=== PATIENT | male | born 1935 | race Caucasian/White ===

== ENCOUNTER 2017-01-31 19:08 | Observation (INO) | payer MEDICARE, OTHER ==
[~2017-01-31] VITALS: Ht 182.9 cm; Wt 87.7 kg
[~2017-01-31 19:08] MED LIST: ALLOPURINOL300 M1 PO; ARICEPT 10 MG T10 MG PO; B-121000 MCG PO; BAYER ASPIRIN R81 MG PO; CARBIDOPA AND L1 TA1 PO; CARBIDOPA/LE1 TABLE2 PO; CIPRO 500MG TA500 MG PO; COLCRYS0.6 M1 PO; DONEPEZIL 10MG10 MG PO; DOS; DOS PO; FIBER PO; FINASTERIDE5 M1 PO; GABAPENTIN300 M1 PO; GABAPENTIN300 M2 PO; GABAPENTIN300 MG PO; GLYCOLAX17 GM/PACK PO; HYDROCODONE-APA1 TA1 PO; K-DUR 1010 MEQ PO; LASIX20 MG PO; LEVAQUIN500 MG PO; LEVOCETIRIZINE D5 MG PO; LEVOTHYROXIN0.025 M1; LEVOTHYROXIN0.025 M1 PO; LEVOTHYROXINE0.1 MG PO; LISINOPRIL5 MG PO; MIRALAX17 GM/DOSE PO; MIRAPEX 0.120.125 MG PO; MIRAPEX0.125 M1 PO; NAMENDA10 MG PO; NAMZARIC1 ECC PO; NEURONTIN100 MG PO; PRAMIPEXOLE0.125 MG PO; RAZADYNE4 MG PO; STOOL SOFTENER240 MG PO; TAMSULOSIN HCL0.4 MG PO; VITAMIN B1250 MCG PO; VITAMIN C PLUS PO; VITAMIN C1000 M1 PO; VITAMIN D31000 I1 PO; VITAMIN D32000 I2 PO; VITAMIN E100 IU PO; [UNRECOGNIZED DRUG - OTHER]
[2017-01-31 19:10] VITALS: BP 134/76
[2017-01-31] MEDS ORDERED: ALLOPURINOL300 MG PO (19:26)
[2017-01-31] MEDS ORDERED: LEVOCETIRIZINE D5 MG PO (19:27)
[2017-01-31] MEDS ORDERED: LASIX 20MG. TAB20 MG PO (19:28)
[2017-01-31] MEDS ORDERED: MIRAPEX0.125 M1 PO (19:29)
[2017-01-31] MEDS ORDERED: CARBIDOPA/LE1 TABLE2 PO (19:31)
[2017-01-31] MEDS ORDERED: GABAPENTIN100 M1 PO (19:32)
[2017-01-31] MEDS ORDERED: GABAPENTIN300 MG PO (19:33)
[2017-01-31] MEDS ORDERED: VITAMIN D31000 IU PO (19:33)
[2017-01-31] MEDS ORDERED: PREDNISONE 5MG.5 MG PO (19:34)
[2017-01-31] MEDS ORDERED: FINASTERIDE5 MG PO (19:35)
[2017-01-31] MEDS ORDERED: NAMZARIC1 ECC PO (19:36)
[2017-01-31] MEDS ORDERED: TAMSULOSIN HYD0.4 MG PO (19:36)
[2017-01-31] MEDS ORDERED: ASPIRIN 81MG TA81 MG PO (19:37)
[2017-01-31] MEDS ORDERED: FLUDROCORTISON0.1 M1 PO (19:37)
[2017-01-31] MEDS ORDERED: LEVOTHYROXIN0.025 M1 PO (19:39)
[2017-01-31 19:57] LABS: HEMOGLOBIN 15.6 g/dL (14.1-18.0); LYMPH # 0.8 K/mm3 (0.7-4.5)
--- NOTE | 2017-01-31 19:58 | Emergency Room Report ---
History of Present Illness Time Seen by 1946 Presenting Problem in Triage Pt arrived:Ambulance Stretcher Presenting Problem:PATIENT SEEN BY HOME HEALTH, NURSE REQUESTED TO BE EVALUATED IN ER. FAMILY REPORTS INCREASED CONFUSED, AND LOW BP.SEEN DR. GUZMÁN LAST TUESDAY STARTED ON FLUDROCORT 0.1 MG Onset of symptoms date/time:01/24/17/ or onset unknown for:MEDICAL HX UNKNOWN Treatment Prior to Arrival: STARTED ON FLUDROCORT 0.1 MG AND PREDNISONE [employer] Provided by:PHYSICIAN Sepsis Risk Assessment: Temp: 98.4 B/P: 134/76 MAP: 95 Pulse: 61 Resp: 20 Recent fever? N Clinical Suspician of Infection? N Mental Status: 1 - Regular (Normal Baseline) Sepsis Risk:Low Sepsis Risk Have you (or family members/close friends) recently traveled outside the [place]? N If Yes, where/when: Have you had exposure to infectious disease within the past month? N TB? Other? Specify: Patient lives at home with his he walks with a walker at baseline has dementia. Over the past several days she's been having declining mental status on and off. Today he is been in bed all day and altered mental status all day since he woke up. He is not made any complaints of pain to his life except for some chronic low back pain which she states is unchanged. The patient doesn't contribute to history. Family states sometimes his blood pressure is dropping below that he's had a little bit of cough but otherwise no nausea vomiting or diarrhea or other complaints. She denies any pain he denies any complaints she is alert orientated 2 doesn't know the year but seems to lack any insight are really recollection of his recent symptoms. Or historian history of present illness is limited secondary to patient's mental status and dementia (Cuca GOODWIN, Abdi) Time Seen by 1911 Presenting Problem in Triage Pt arrived:Ambulance Stretcher Presenting Problem:PATIENT SEEN BY HOME HEALTH, NURSE REQUESTED TO BE EVALUATED IN ER. FAMILY REPORTS INCREASED CONFUSED, AND LOW BP.SEEN DR. GUZMÁN LAST TUESDAY STARTED ON FLUDROCORT 0.1 MG Onset of symptoms date/time:01/24/17/ or onset unknown for:MEDICAL HX UNKNOWN Treatment Prior to Arrival: STARTED ON FLUDROCORT 0.1 MG AND PREDNISONE [employer] Provided by:PHYSICIAN Sepsis Risk Assessment: Temp: 98.4 B/P: 126/75 MAP: 95 Pulse: 60 Resp: 20 Recent fever? N Clinical Suspician of Infection? N Mental Status: 1 - Regular (Normal Baseline) Sepsis Risk:Low Sepsis Risk Have you (or family members/close friends) recently traveled outside the [place]? N If Yes, where/when: Have you had exposure to infectious disease within the past month? N TB? Other? Specify: Source patient, RN notes reviewed, family, EMS, old records Exam Limitations no limitations Comment pt with dec functional status and was sent in for eval - pt poor historian -no fever /pt with no chest pain Cardiac Chest Pain Chest pain indicative of cardiac No Timing/Duration this evening ALLERGIES Coded Allergies: Penicillins (01/31/17) Home Medications Reported Medications Allopurinol 300 MG PO DAILY LEVOCETIRIZINE DIHYDROCHLORIDE (Levocetirizine Dihydrochloride) 5 MG PO DAILY Furosemide (Lasix 20MG) 20 MG PO QOD Pramipexole Di-HCl (Mirapex) 0.125 MG PO TID CARBIDOPA 25/LEVODOPA 100 (Carbidopa-Levodopa 25-100 Tab) 1 TABLET PO TID Gabapentin (Gabapentin 300MG) 300 MG PO BID CHOLECALCIFEROL (VITAMIN D3) (Vitamin D) 1,000 IUNITS PO DAILY Prednisone (Prednisone 5MG) 5 MG PO DAILY Finasteride 5 MG PO DAILY Memantine HCl/Donepezil HCl (Namzaric 21 MG-10 MG Capsule) 1 EACH PO NIGHT TAMSULOSIN HCL (Tamsulosin 0.4MG) 0.4 MG PO QHS ASPIRIN (Aspirin) 81 MG PO DAILY Fludrocortisone Acetate 0.1 MG PO AT HS Levothyroxine Sodium (Levothyroxine 0.025MG) 0.025 MG PO DAILY (To GOODWIN,Sergio Catherine) History Medical History General CAD? No Angina: No SD: Yes Hypertension? No Hyperlipidemia? Yes CHF? No DVT? No PE? No COPD? No Asthma? No Anemia? No GERD? Yes Gastric ulcers? Yes GI Bleed? No Hernia? No Thyroid Problems? Yes Hypothyroidism? No CVA? No Seizures? No Diabetes? No End Stage Renal Disease? No UTI? No Stones? No BPH? No GB Disease: No Nephritic Syndrome? No Asplenia? No Hepatitis? No Sickle Cell Disease? No Arthritis? No Migraines? No Cataracts? No Glaucoma? No MRSA? No HIV? No TB? No Anxiety? No Depression? No Cancer? No More? Yes Additional hx: [employer] Immunization Hx DT/Tetanus Unknown Surgical Hx Previous Surgery?N Social History Smoking Hx Smoker: Former Smoker Tobacco: Yes Type Cigarettes Alcohol Alcohol: No (Abdi Thurman MD) Review of Systems All Other Systems Reviewed and Negative (patient denies any pain or pro) Comment he denies any pain or problems foot seems to have limited insight review of systems Limited (Abdi Thurman MD) Physical Exam Vital Signs Vital Signs Date Time Temp Pulse Resp B/P Pulse O2 O2 Flow FiO2 Ox Delivery Rate 01/31 2025 60 20 126/75 96 01/31 1910 98.4 61 20 134/76 96 General Appearance: Nontoxic appears fatigued and dehydrated, some cough Head: Normocephalic, without obvious abnormality, atraumatic. Eyes: conjunctiva/corneas clear ENT: Mucous membranes dry Neck: No jugular venous distention. Cardiac: regular rate and rhythm Lungs: shallow rhonchi to auscultation bilaterally Abdomen: Nontender, Nondistended, positive bowel sounds, no rebound : No CVA tenderness Extremities: no edema Musculoskeletal: No chest wall tenderness denies arm or leg tenderness no chest wall tenderness no CT or L-spine tenderness Skin: No rashes or lesions to exposed skin. Neurologic: Alert. Alert and oriented x2, does not know year Cranial nerves intact Strength 5 out of 5 Sensation intact to light touch Psychiatric: flat affect (Abdi Thurman MD) General Appearance fatigued Respiratory Status No: respiratory distress. Cardiovascular normal exam Neurologic alert (fatigued) (Abdi Thurman MD) Medical Decision Making LABS/Meds/Orders Pt receiving controlled substance in ED? No Comment [id number] patient is up and CAT scan, ordered initial workup follow-up of testing labs and CTs chest x-ray per Dr. Ariza Results/Orders Laboratory Tests 01/31/171958: Urine Color YELLOW, Urine Appearance CLEAR, Urine pH 6.0, Ur Specific [place] 1.015, Urine Protein NEGATIVE, Urine Ketones NEGATIVE, Urine Blood TRACE-LYSED, Urine Nitrate NEGATIVE, Urine Bilirubin NEGATIVE, Urine Urobilinogen 0.2, Ur Leukocyte Esterase 1+ H, Urine RBC OCC, Urine WBC 20-50, Ur Squamous Epith Cells OCC, Urine Bacteria 4+, Hyaline Casts 10-20, Urine Glucose NEGATIVE 01/31/171929: TSH Pending, Thyroxine (T4) Pending 01/31/171929: Lactic Acid 1.8 01/31/171929: Troponin I 0.02, B-Natriuretic Peptide 27 01/31/171929: Sodium 140, Potassium 4.0, Chloride 99, Carbon Dioxide 34 H, BUN 35 H, Creatinine 1.8 H, Estimated Creat Clear 42 L, Estimated GFR (MDRD) 36, Glucose 177 H, Calcium 9.2, Total Bilirubin 0.4, AST 19, ALT 11 L, Alkaline Phosphatase 89, Total Protein 8.0, Albumin 4.0, Globulin 4.0 H, Albumin/ Globulin Ratio 1.0 L, Lipase 366, WBC 8.1, RBC 5.18, Hgb 15.6, Hct 47.9, MCV 92.5, RDW 14.4, Plt Count 171, MPV 7.7, Gran % 87.0 H, Gran # 7.1, Total Counted 100, Lymphocytes % 10.0, Monocytes % 2.2, Eosinophils % 0.4, Basophils % 0.4, Neutrophils 86 H, Lymphocytes (Manual) 10, Lymphocytes # 0.8, Monocytes ( Manual) 4, Monocytes # 0.2, Eosinophils # 0.0, Basophils # 0.0, Platelet Estimate NORMAL, PUBS MCHC 32.6, MCH 30.2 Current Medication Orders Sig/Lu Start time Last Medication Dose Route Stop Time Status Admin Ondansetron HCl 0 .STK-MED ONE 01/31 1943 DC .ROUTE Sodium Chloride 1,000 ML .STK-MED ONE 01/31 1943 DC IV Morphine Sulfate 4 MG ONCE ONE 01/31 1915 CAN IV 02/01 1916 Ondansetron HCl 4 MG ONCE ONE 01/31 1915 DC 01/31 IV 01/31 Sodium Chloride 1,000 ML .Q1H1M 01/31 1915 DC 01/31 IV 01/31 Sodium Chloride 10 ML PRN PRN 01/31 1915 AC IV 02/01 1913 Orders Procedure Date/time Status DIET-NOTHING BY MOUTH 02/01 B Active Decision to admit 02/01 2108 Active THYROID STIMULATING HORMONE 02/01 2056 Active THYROXINE (T4) 02/01 2056 Active URINARY CATHETER INSERT 02/01 2024 Active CULTURE, URINE 01/31 1959 Active DIFFERENTIAL-WBC 01/[address] HEAD W/O CONTRAST 01/31 1923 Active 12 LEAD EKG-ADONAY (INITIAL) 01/31 1922 Active ELECTROCARDIOGRAM REQUEST 01/[address] HEAD REQ 01/31 1922 Complete CHEST-AP VIEW ONLY 01/31 1922 Active CULTURE, BLOOD 01/31 1922 Active URINALYSIS/COMPLETE 01/31 1922 Complete TROPONIN I 01/31 1922 Complete LACTIC ACID 01/31 1922 Complete BRAIN NATRIURETIC PEPTIDE 01/31 1922 Complete LIPASE 01/31 1913 Complete CBC WITH AUTO DIFF 01/31 1913 Complete CHEM 12 PROFILE 01/31 1913 Complete CM/EKG CM/hr coordinator Rhythm Sinus Bradycardia EKG compared w/(date of old), RBBB, lahb (To GOODWIN,Sergio Catherine) Departure Departure Time of Disposition 1954 Disposition Still a Patient Condition STABLE ED Critical Care Critical Care No (Abdi Thurman MD) Departure Clinical Impression Primary Impression: Confusion Secondary Impressions: RBBB (right bundle branch block with left anterior fascicular block) Renal insufficiency UTI (urinary tract infection) Qualifiers: Urinary tract infection type: acute cystitis Hematuria presence: without hematuria Qualified Code: N30.00 - Acute cystitis without hematuria Weakness Referrals Imelda Guzmán MD (Family) discussed with dr guzmán (Sergio Ariza MD) at 195 at 2113
--- OUTSIDE RECORDS SUMMARY | 2017-01-31 20:11 | External Medical Summary Rpt | CCD ---
Author Author , HOWARD Organization HOWARD Address Unknown Phone [email or web address] Purpose Continuity of Care Document - 10-14-2016 through 2016 Results Labs Lab Lab Date Result Refere Interp Status Commen Order Detail nces retati t Range on Differential panel, method unspecified - (10-14-2016 13:40) LYMPH 9 % 10% - Low complet 017 50% ed 13:40 Platele NORMAL complet ts 017 ed [Presen 13:40 ce] in Blood by Light microsc opy Urinalysis dipstick W Reflex Microscopic panel in Urine (10-14-2016 13:35) Bacteri 3+ O complet a 017 ed [Presen 13:35 ce] in Urine sedimen t by Light microsc opy Erythro 20-50 0 complet cytes 017 ed [Presen 13:35 ce] in Urine sedimen t by Light microsc opy Epithel OCC OCC complet ial 017 ed cells.s 13:35 quamous [Presen ce] in Urine sedimen t by Microsc opy high power field Leukocy 50-100 O complet casie 017 wbc/hpf ed [#/volu 13:35 me] in Urine Urinalysis dipstick W Reflex Microscopic panel in Urine (10-14-2016 13:35) Appeara CLOUDY CLEAR complet nce of 017 ed Urine 13:35 Bilirub NEGATIV NEG complet in 017 E ed [Presen 13:35 ce] in Urine by Test strip Erythro 3+ NEG Abnorma complet cytes 017 l ed [Presen 13:35 ce] in Urine Color YELLOW YELLOW complet of 017 ed Urine 13:35 Ketones NEGATIV NEG complet 017 E ed [Presen 13:35 ce] in Urine by Automat ed test strip Mucus 3+ NEG Abnorma complet [Presen 017 l ed ce] in 13:35 Urine sedimen t by Light microsc opy Nitrite NEGATIV NEG complet 017 E ed [Presen 13:35 ce] in Urine by Test strip Urobili 0.2 NEG complet nogen 017 ed [Presen 13:35 ce] in Urine by Test strip
--- OUTSIDE RECORDS SUMMARY | 2017-01-31 20:11 | External Medical Summary Rpt | CCD ---
Author Author [employer] Organization [employer] Address Unknown Phone Unavailable Purpose Continuity of Care Document - through 2016
--- OUTSIDE RECORDS SUMMARY | 2017-01-31 20:11 | External Medical Summary Rpt | CCD ---
Author Author , HOWARD Organization HOWARD Address Unknown Phone [email or web address] Purpose Continuity of Care Document - 10-14-2016 [...]
--- OUTSIDE RECORDS SUMMARY | 2017-01-31 20:12 | External Medical Summary Rpt | CCD ---
Demographics Preferred Language Portuguese Marital Status Unknown Orthodoxy Affiliation Unknown Race Unknown Ethnic Group Unknown Author Author , HOWARD LAWRENCE Address Unknown Phone Immunization Unable to retrieve immunization data due to connection failure with Immunization Registry. Please try again later.
--- OUTSIDE RECORDS SUMMARY | 2017-01-31 20:12 | External Medical Summary Rpt | CCD ---
Demographics Preferred Language Portuguese Marital Status Unknown Episcopal Affiliation Unknown Race Unknown Ethnic Group Unknown Author Author , HOWARD LAWRENCE Address Unknown Phone Immunization Unable to retrieve immunization data due to connection failure with Immunization Registry. Please try again later.
[2017-01-31 20:13] LABS: URINE BILIRUBIN - DIPSTICK NEGATIVE (NEG); URINE BLOOD TRACE-LYSED (NEG)
--- OUTSIDE RECORDS SUMMARY | 2017-01-31 20:13 | External Medical Summary Rpt ---
Author Author [employer]ARD [employer], [employer]ARD [employer] Organization [employer] Address Unknown Phone Unavailable Results Basic metabolic panel in Blood Observa Value Referen Units Interpr Notes Date tion ce etation Range Urea 7 - 18 mg/dL High No Oct 15 nitrogen informati 2016 6:18 [Mass/vol on in AM ume] in source Serum or data Plasma Calcium 8.5 - mg/dL Normal No Oct 15 [Mass/vol 10.1 informati 2016 6:18 ume] in on in AM Serum or source Plasma data Chloride 98 - 107 mmoL/L Normal No Oct 15 [Moles/vo informati 2016 6:18 lume] in on in AM Serum or source Plasma data Carbon 21.0 - mmoL/L Normal No Oct 15 dioxide, 32.0 informati 2016 6:18 total on in AM [Moles/vo source lume] in data Serum or Plasma Creatinin 0.70 - mg/dL High No Oct 15 e 1.30 informati 2016 6:18 [Mass/vol on in AM ume] in source Serum or data Plasma Creatinin 50 - 200 ML/MIN Low No Oct 15 e renal informati 2017 6:18 clearance on in AM source predicted data by Cockcroft -Gault formula Estimated >60 ML/MIN No REFERENCE Oct 15 informati RANGE: 2017 6:18 glomerula on in >60 AM r source ML/MIN/1. filtratio data 73 SQUARE n rate METERSIf (GF this patient is -A merican, then multiply theresult by 1.210. Glucose 74 - 106 mg/dL Normal No Oct 15 [Mass/vol informati 2016 6:18 ume] in on in AM Serum or source Plasma data Potassium 3.5 - 5.1 mmoL/L Normal No Oct 15 informati 2016 6:18 [Moles/vo on in AM lume] in source Serum or data Plasma Sodium 136 - 145 mmoL/L Normal No Oct 15 [Moles/vo informati 2016 6:18 lume] in on in AM Serum or source Plasma data CBC W Auto Differential panel in Blood Observa Value Referen Units Interpr Notes Date tion ce etation Range Basophils 0 - 0.2 K/MM3 Normal No Oct 15 informati 2016 6:18 [#/volume on in AM ] in source Blood by data Automated count Basophils 0.1 - 2.0 % Normal No Oct 15 /100 informati 2017 6:18 leukocyte on in AM s in source Blood by data Automated count Eosinophi 0.0 - 0.4 K/mm3 Normal No Oct 15 ls informati 2016 6:18 [#/volume on in AM ] in source Blood by data Automated count Eosinophi 0.1 - % Normal No Oct 15 ls/100 12.0 informati 2016 6:18 leukocyte on in AM s in source Blood by data Automated count Granulocy 1.3 - 8.0 K/mm3 Normal No Oct 15 casie informati 2016 6:18 [#/volume on in AM ] in source Blood by data Automated count Granulocy 37.0 - % High No Oct 15 casie/100 80.0 informati 2016 6:18 leukocyte on in AM s in source Blood by data Automated count Hematocri 42.0 - % Low No Oct 15 t [Volume 52.0 informati 2016 6:18 on in AM Fraction] source of Blood data Hemoglobi 14.1 - g/dL Low No Oct 15 n 18.0 informati 2016 6:18 [Mass/vol on in AM ume] in source Blood data Lymphocyt 0.7 - 4.5 K/mm3 Normal No Oct 15 es informati 2016 6:18 [#/volume on in AM ] in source Unspecifi data ed specimen by Automated count Lymphocyt 10 - 50 % Normal No Oct 15 es informati 2016 6:18 [#/volume on in AM ] in source Unspecifi data ed specimen by Automated count Erythrocy 27 - 31.2 pg Normal No Oct 15 te mean informati 2016 6:18 corpuscul on in AM ar source hemoglobi data n [Entitic mass] Erythrocy 31.8 - g/dl Normal No Oct 15 te mean 35.4 informati 2016 6:18 corpuscul on in AM ar source hemoglobi data n concentra tion [Mass/vol ume] by Automated count Erythrocy 82.2 - fl Normal No Oct 15 te mean 97.8 informati 2016 6:18 corpuscul on in AM ar volume source [Entitic data volume] by Automated count Monocytes 0.1 - 1.0 K/mm3 Normal No Oct 15 inform2016 6:18 [#/volume on in AM ] in source Blood by data Automated count Monocytes 1.7 - 9.3 % Normal No Oct 15 inform2016 6:18 leukocyte on in AM s in source Blood by data Automated count Platelet 7.4 - fl Normal No Oct 15 mean 10.4 inform2016 6:18 volume on in AM [Entitic source volume] data in Blood by Automated count Platelets 142 - 424 K/mm3 Low No Oct 15 informati 2016 6:18 [#/volume on in AM ] in source Blood data Erythrocy 4.6 - 6.2 M/mm3 Low No Oct 15 casie informati 2016 6:18 [#/volume on in AM ] in source Amniotic data fluid Erythrocy 11.5 - % Normal No Oct 15 te 17.5 informati 2016 6:18 distribut on in AM ion width source [Entitic data volume] by Automated count Leukocyte 4.8 - K/MM3 No No Oct 15 s 10.8 informati informati 2016 6:18 [#/volume on in on in AM ] in source source Blood data data Cobalamin (Vitamin B12) [Mass/volume] in Serum Observa Value Referen Units Interpr Notes Date tion ce etation Range Cobalamin 211 - 946 pg/mL No Performed Oct 14 (Vitamin informati at: CB 2016 1:40 B12) on in - [facility] PM [Mass/vol source ume] in data [place] [address] [place] [id number] Housekeeping Manager: Klaus Elaine PhD, Phone: [phone] 1948:ANGELES MIN B12 previousl y reported as: 384 25-Hydroxyvitamin D [Mass/volume] in Serum or Plasma Observa Value Referen Units Interpr Notes Date tion ce etation Range 25-Hydrox 30.0 - ng/mL No Vitamin D Oct 14 yvitamin 100.0 informati 2017 1:40 D on in deficienc PM [Mass/vol source y has ume] in data been Serum or defined Plasma by the [place] ofMedicin e and an Endocrine Society practice guideline as alevel of serum 25-OH vitamin D less than 20 ng/mL (1,2).The Endocrine Society went on to further define vitamin Dinsuffic iency as a level between 21 and 29 ng/mL (2).1. IOM (Institut e of Medicine) . 2010. Dietary reference intakes for calcium and D. [place]: [employer].2. Shekhar MF, Morgan NC, Jonah Quarles BRANCH, et al.Evalua tion, treatment , and preventio n of vitamin Ddeficien cy: an Endocrine Society clinical practiceg uideline. JCEM. 2010; 96(7):191 1-30.Perf ormed at: [facility] [address] [id number] Housekeeping Manager: Klaus Elaine PhD, Phone: [phone] 1927:VIT D 25-OH TOT previousl y reported as: 47.5 Cobalamin (Vitamin B12) [Mass/volume] in Serum Observa Value Referen Units Interpr Notes Date tion ce etation Range Cobalamin No No No No Oct 14 (Vitamin informati informati informati informati 2016 1:40 B12) on in on in on in on in PM [Mass/vol source source source source ume] in data data data data Serum 25-Hydroxyvitamin D [Mass/volume] in Serum or Plasma Observa Value Referen Units Interpr Notes Date tion ce etation Range 25-Hydrox No No No No Oct 14 yvitamin informati informati informati informati 2016 1:40 D on in on in on in on in PM [Mass/vol source source source source ume] in data data data data Serum or Plasma Lactate [Moles/volume] in Blood Observa Value Referen Units Interpr Notes Date tion ce etation Range Lactate 0.4 - 2.0 mmol/L Normal No Oct 14 [Moles/vo informati 2016 1:40 lume] in on in PM Blood source data CBC W Auto Differential panel in Blood Observa Value Referen Units Interpr Notes Date tion ce etation Range Basophils 0 - 0.2 K/MM3 Normal No Oct 14 informati 2016 1:40 [#/volume on in PM ] in source Blood by data Automated count Basophils 0.1 - 2.0 % Normal No Oct 14 informati 2016 1:40 leukocyte on in PM s in source Blood by data Automated count Eosinophi 0.0 - 0.4 K/mm3 Normal No Oct 14 ls informati 2016 1:40 [#/volume on in PM ] in source Blood by data Automated count Eosinophi 0.1 - % Normal No Oct 14 ls/100 12.0 informati 2016 1:40 leukocyte on in PM s in source Blood by data Automated count Granulocy 1.3 - 8.0 K/mm3 High No Oct 14 casie informati 2016 1:40 [#/volume on in PM ] in source Blood by data Automated count Granulocy 37.0 - % High No Oct 14 casie/100 80.0 informati 2016 1:40 leukocyte on in PM s in source Blood by data Automated count Hematocri 42.0 - % Normal No Oct 14 t [Volume 52.0 2016 1:40 on in PM Fraction] source of Blood data Hemoglobi 14.1 - g/dL Normal No Oct 14 n 18.0 ati 2016 1:40 [Mass/vol on in PM ume] in source Blood data Lymphocyt 0.7 - 4.5 K/mm3 Low No Oct 14 es informati 2016 1:40 [#/volume on in PM ] in source Unspecifi data ed specimen by Automated count Lymphocyt 10 - 50 % Low No Oct 14 es 2016 1:40 [#/volume on in PM ] in source Unspecifi data ed specimen by Automated count Erythrocy 27 - 31.2 pg Normal No Oct 14 te mean informati 2016 1:40 corpuscul on in PM ar source hemoglobi data n [Entitic mass] Erythrocy 31.8 - g/dl Normal No Oct 14 te mean 35.4 ati 2016 1:40 corpuscul on in PM ar source hemoglobi data n concentra tion [Mass/vol ume] by Automated count Erythrocy 82.2 - fl Normal No Oct 14 te mean 97.8 informati 2016 1:40 corpuscul on in PM ar volume source [Entitic data volume] by Automated count Monocytes 0.1 - 1.0 K/mm3 Normal No Oct 14ati 2016 1:40 [#/volume on in PM ] in source Blood by data Automated count Monocytes 1.7 - 9.3 % Normal No Oct 14 informati 2016 1:40 leukocyte on in PM s in source Blood by data Automated count Platelet 7.4 - fl Low No Oct 14 mean 10.4 informati 2016 1:40 volume on in PM [Entitic source volume] data in Blood by Automated count Platelets 142 - 424 K/mm3 Normal No Oct 14 inform2016 1:40 [#/volume on in PM ] in source Blood data Erythrocy 4.6 - 6.2 M/mm3 Normal No Oct 14 casie 2016 1:40 [#/volume on in PM ] in source Amniotic data fluid Erythrocy 11.5 - % Normal No Oct 14 te 17.5 2016 1:40 distribut on in PM ion width source [Entitic data volume] by Automated count Leukocyte 4.8 - K/MM3 High No Oct 14 s 10.8 2016 1:40 [#/volume on in PM ] in source Blood data Differential panel, method unspecified - Observa Value Referen Units Interpr Notes Date tion ce etation Range Neutrophi 0 - 8 % Normal No Oct 14 ls.band 2016 1:40 form/100 on in PM leukocyte source s in data Blood by Automated count Basophils 0 - 1 % Normal No Oct 142016 1:40 leukocyte on in PM s in source Blood by data Automated count LYMPH 9 10 - 50 % Low No Oct 142016 tion in 1:40 PM source data Monocytes 2 - 9 % Normal No Oct 142016 1:40 leukocyte on in PM s in source Blood by data Automated count Platele NORMAL No No No No Oct 14 ts informa informa informa informa 2016 [Presen tion in tion in tion in tion in 1:40 PM ce] in source source source source Blood data data data data by Light microsc opy Neutrophi 42 - 76 % High No Oct 14 ls ati 2016 1:40 [#/volume on in PM ] in source Blood by data Automated count Cells No #CELLS No No Oct 14 Counted ati informati informati 2016 1:40 Total [#] on in on in on in PM in Blood source source source data data data Urinalysis dipstick W Reflex Microscopic panel in Urine Observa Value Referen Units Interpr Notes Date tion ce etation Range Appeara CLOUDY CLEAR No No No Oct 14 nce of informa informa informa 2017 Urine tion in tion in tion in 1:35 PM source source source data data data Bacteri 3+ O No No No Oct 14 a informa informa informa 2016 [Presen tion in tion in tion in 1:35 PM ce] in source source source Urine data data data sedimen t by Light microsc opy Bilirub NEGATIV NEG No No No Oct 14 in E informa informa informa 2016 [Presen tion in tion in tion in 1:35 PM ce] in source source source Urine data data data by Test strip Erythro 3+ NEG No Abnorma No Oct 14 cytes informa l informa 2016 [Presen tion in tion in 1:35 PM ce] in source source Urine data data Color YELLOW YELLOW No No No Oct 14 of informa informa informa 2016 Urine tion in tion in tion in 1:35 PM source source source data data data Glucose NEG No No No Oct 14 [Mass/vol informati informati informati 2016 1:35 ume] in on in on in on in PM Urine by source source source Test data data data strip Ketones NEGATIV NEG mg/dL No No Oct 14 E informa informa 2016 [Presen tion in tion in 1:35 PM ce] in source source Urine data data by Automat ed test strip Mucus 3+ NEG No Abnorma No Oct 14 [Presen informa l informa 2016 ce] in tion in tion in 1:35 PM Urine source source sedimen data data t by Light microsc opy Nitrite NEGATIV NEG No No No Oct 14 E informa informa informa 2016 [Presen tion in tion in tion in 1:35 PM ce] in source source source Urine data data data by Test strip pH of 5.0 - 8.5 No Normal No Oct 14 Urine informati informati 2017 1:35 on in on in PM source source data data Protein NEG mg/dL High No Oct 14 [Mass/vol informati 2016 1:35 ume] in on in PM Urine by source Automated data test strip Erythro 20-50 0 rbc/hpf No No Oct 14 cytes informa informa 2016 [Presen tion in tion in 1:35 PM ce] in source source Urine data data sedimen t by Light microsc opy Specific 1.005 - No Normal No Oct 14 gravity 1.030 informati informati 2017 1:35 of Urine on in on in PM source source data data Epithel OCC OCC #/hpf No No Oct 14 ial informa informa 2017 cells.s tion in tion in 1:35 PM quamous source source data data [Presen ce] in Urine sedimen t by Microsc opy high power field Urobili 0.2 NEG E.U./dL No No Oct 14 nogen informa informa 2016 [Presen tion in tion in 1:35 PM ce] in source source Urine data data by Test strip Leukocy [50 O wbc/hpf No No Oct 14 casie wbc/hpf informa informa 2016 [#/volu ; 100 tion in tion in 1:35 PM me] in wbc/hpf source source Urine ] data data Urinalysis dipstick W Reflex Microscopic panel in Urine Observa Value Referen Units Interpr Notes Date tion ce etation Range Appeara CLOUDY CLEAR No No No Oct 14 nce of informa informa informa 2017 Urine tion in tion in tion in 1:35 PM source source source data data data Bilirub NEGATIV NEG No No No Oct 14 in E informa informa informa 2016 [Presen tion in tion in tion in 1:35 PM ce] in source source source Urine data data data by Test strip Erythro 3+ NEG No Abnorma No Oct 14 cytes informa l informa 2016 [Presen tion in tion in 1:35 PM ce] in source source Urine data data Color YELLOW YELLOW No No No Oct 14 of informa informa informa 2017 Urine tion in tion in tion in 1:35 PM source source source data data data Glucose NEG No No No Oct 14 [Mass/vol informati informati informati 2017 1:35 ume] in on in on in on in PM Urine by source source source Test data data data strip Ketones NEGATIV NEG mg/dL No No Oct 14 E informa informa 2016 [Presen tion in tion in 1:35 PM ce] in source source Urine data data by Automat ed test strip Mucus 3+ NEG No Abnorma No Oct 14 [Presen informa l informa 2016 ce] in tion in tion in 1:35 PM Urine source source sedimen data data t by Light microsc opy Nitrite NEGATIV NEG No No No Oct 14 E informa informa informa 2016 [Presen tion in tion in tion in 1:35 PM ce] in source source source Urine data data data by Test strip pH of 5.0 - 8.5 No Normal No Oct 14 Urine informati informati 2017 1:35 on in on in PM source source data data Protein NEG mg/dL High No Oct 14 [Mass/vol informati 2016 1:35 ume] in on in PM Urine by source Automated data test strip Specific 1.005 - No Normal No Oct 14 gravity 1.030 informati informati 2017 1:35 of Urine on in on in PM source source data data Urobili 0.2 NEG E.U./dL No No Oct 14 nogen informa informa 2016 [Presen tion in tion in 1:35 PM ce] in source source Urine data data by Test strip
--- OUTSIDE RECORDS SUMMARY | 2017-01-31 20:13 | External Medical Summary Rpt ---
[...] [facility] PM [Mass/vol source ume] in data [place] [address] [place] [id number] Chief Business Development Officer: Klaus Elaine PhD, Phone: [phone] 1948:ANGELES MIN B12 previousl y reported as: 384 25-Hydroxyvitamin D [Mass/volume] in Serum or Plasma Observa Value Referen Units Interpr Notes Date tion ce etation Range 25-Hydrox 30.0 - ng/mL No Vitamin D Oct 14 yvitamin 100.0 informati 2017 1:40 D on in deficienc PM [Mass/vol source y has ume] in data been Serum or defined Plasma by the [place] ofMedicin e and an Endocrine Society practice guideline as alevel of serum 25-OH vitamin D less than 20 ng/mL (1,2).The Endocrine Society went on to further define vitamin Dinsuffic iency as a level between 21 and 29 ng/mL (2).1. IOM (Institut e of Medicine) . 2010. Dietary reference intakes for calcium and D. [place]: [employer].2. Shekhar MF, Morgan NC, Jonah Quarles BRANCH, et al.Evalua tion, treatment , and preventio n of vitamin Ddeficien cy: an Endocrine Society clinical practiceg uideline. JCEM. 2010; 96(7):191 1-30.Perf ormed at: [facility] [address] [id number] Chief Business Development Officer: Klaus Elaine PhD, Phone: [phone] 1927:VIT D 25-OH TOT previousl y reported [...] [50 O wbc/hpf No No Oct 14 acsie wbc/hpf informa informa 2016 [#/volu ; 100 [...]
[2017-01-31 20:37] LABS: URINE SQUAMOUS CELLS OCC #/hpf (OCC)
[2017-01-31 20:48] LABS: NEUTROPHILS 86 % (42-76)
--- OUTSIDE RECORDS SUMMARY | 2017-01-31 21:18 | External Medical Summary Rpt | CCD ---
Demographics Preferred Language Malay Marital Status Unknown Yazdanism Affiliation Unknown Race Unknown Ethnic Group Unknown Author Author , HOWARD LAWRENCE Address Unknown Phone Immunization Unable to retrieve immunization data due to connection failure with Immunization Registry. Please try again later.
--- OUTSIDE RECORDS SUMMARY | 2017-01-31 21:18 | External Medical Summary Rpt | CCD ---
Author Author , HOWARD LAWRENCE Address Unknown Phone [email or web address] Care [email or web address] Providers Care Diesel Scoop Operator Name Role Phone Preeti MCKENZIE, Unavailable Unavailable Preeti MCKENZIE Purpose Continuity of Care Document - 11-27-2012 through 2016 Problems Code Diagnosis DOS Provider Status [id number] Alzheimer's [facility] [id number] Chronic [facility] Allergies, Adverse Reactions, Alerts Type Drug Allergy Adverse Reaction to Substance Substance Reaction Severity Penicillin I-RASH Unknown Trimethoprim I-RASH Unknown Sulfamethoxazole I-RASH Unknown Vital Signs 11-27-2012 17:05 Name Value Interpretat Reference Comment ion Range BP 70 mm[Hg] Diastolic BP Systolic 143 mm[Hg] Heart 68 /min Rate/Pulse O2% 98 % Respiratory 18 /min Rate 11-27-2012 14:56 Name Value Interpretat Reference Comment ion Range BP 82 mm[Hg] Diastolic BP Systolic 142 mm[Hg] Heart 72 /min Rate/Pulse O2% 97 % Respiratory 20 /min Rate Results Labs Lab Lab Date Result Refere Interp Status Commen Order Detail nces retati t Range on Urinalysis dipstick W Reflex Microscopic panel in Urine (01-31-2017 19:59) Bacteri 4+ O complet a 017 ed [Presen 19:59 ce] in Urine sedimen t by Light microsc opy Hyaline 10-20 NONE complet casts 017 ed [Presen 19:59 ce] in Urine sedimen t by Light microsc opy Erythro OCC 0 complet cytes 017 ed [Presen 19:59 ce] in Urine sedimen t by Light microsc opy Epithel OCC OCC complet ial 017 ed cells.s 19:59 quamous [Presen ce] in Urine sedimen t by Microsc opy high power field Leukocy 20-50 O complet casie 017 wbc/hpf ed [#/volu 19:59 me] in Urine Urinalysis dipstick W Reflex Microscopic panel in Urine (01-31-2017 19:59) Appeara CLEAR CLEAR complet nce of 017 ed Urine 19:59 Bilirub NEGATIV NEG complet in 017 E ed [Presen 19:59 ce] in Urine by Test strip Erythro TRACE-L NEG complet cytes 017 YSED ed [Presen 19:59 ce] in Urine Color YELLOW YELLOW complet of 017 ed Urine 19:59 Ketones NEGATIV NEG complet 017 E ed [Presen 19:59 ce] in Urine by Automat ed test strip Mucus 1+ NEG Abnorma complet [Presen 017 l ed ce] in 19:59 Urine sedimen t by Light microsc opy Nitrite NEGATIV NEG complet 017 E ed [Presen 19:59 ce] in Urine by Test strip Urobili 0.2 NEG complet nogen 017 ed [Presen 19:59 ce] in Urine by Test strip Differential panel, method unspecified - (01-31-2017 19:30) LYMPH 10 % 10% - Normal complet 017 50% ed 19:30 Platele NORMAL complet ts 017 ed [Presen 19:30 ce] in Blood by Light microsc opy Differential panel, method unspecified - (10-14-2016 13:40) [...] sedimen t by Light microsc opy Epithel 07-13-2 OCC OCC complet ial 017 ed cells.s [...] 13:35 ce] in Urine by Test strip COMPREHENSIVE METABOLIC PANEL (11-27-2012 14:09) Glucose 115 74-106 complet 013 mg/dL ed Bld-mCn 14:09 c BUN 23 7-18 complet Bld-mCn 013 mg/dL ed c 14:09 Creat 1.7 0.8-1.3 complet SerPl-m 013 mg/dL ed Cnc 14:09 GFR 39 Greater complet (ESTIMA 013 ML/MIN than ed SHAGUFTA) 14:09 60 Sodium 140 136-145 complet SerPl-s 013 mmoL/L ed Cnc 14:09 Potassi 3.6 3.5-5.1 complet um 013 mmoL/L ed SerPl-s 14:09 Cnc Chlorid 103 98-107 complet e 013 mmoL/L ed SerPl-s 14:09 Cnc CO2 29 21.0-32 complet SerPl-s 013 mmoL/L .0 ed Cnc 14:09 Calcium 8.6 8.5-10. complet 013 mg/dL 1 ed SerPl-m 14:09 Cnc Prot 7.8 6.4-8.2 complet SerPl-m 013 gm/dL ed Cnc 14:09 Albumin 4.0 3.4-5.0 complet 013 gm/dL ed SerPl-m 14:09 Cnc Globuli 3.8 1.3-3.2 complet n 013 gm/dL ed Ser-mCn 14:09 c Albumin 1.1 UNK 1.1-1.8 complet /Glob 013 ed SerPl-m 14:09 Rto Bilirub 0.4 0.2-1.0 complet 013 mg/dL ed SerPl-m 14:09 Cnc AST 19 U/L 15-37 complet SerPl-c 013 ed Cnc 14:09 ALT 35 U/L 30-65 complet SerPl-c 013 ed Cnc 14:09 ALP 110 U/L 50-136 complet SerPl-c 013 ed Cnc 14:09 CK SerPl-cCnc (11-27-2012 14:09) CK 93 U/L 39-308 complet SerPl-c 013 ed Cnc 14:09 CK MB SerPl-mCnc (11-27-2012 14:09) CK MB 1.3 0.0-3.6 complet SerPl-m 013 ng/mL ed Cnc 14:09 TROPONIN I (11-27-2012 14:09) TROPONI 0.02 0.00-0. complet N I 013 ng/mL 06 ed 14:09 CBC with AUTO DIFF (11-27-2012 14:09) WBC # 11-27-2 6.3 4.8-10. complet Bld 013 K/MM3 8 ed Auto 14:09 RBC # 11-27-2 5.16 4.6-6.2 complet Bld 013 M/mm3 ed Auto 14:09 Hgb 2 12.7 14.1-18 complet Bld-mCn 013 g/dL .0 ed c 14:09 Hct Fr 11-27-2 39.8 % 42.0-52 complet Bld 013 .0 ed 14:09 MCV RBC 11-27-2 77.2 fl 82.2-97 complet 013 .8 ed 14:09 MCH RBC 11-27-2 24.6 pg 27-31.2 complet Qn 013 ed Auto 14:09 MEAN 11-27-2 31.9 31.8-35 complet CORPUSC 013 g/dl .4 ed ULAR 14:09 HGB CONC RDW RBC 11-27-2 18.6 % 11.5-17 complet Auto 013 .5 ed 14:09 Platele 11-27-2 222 142-424 complet t Bld 013 K/mm3 ed Ql 14:09 Manual MEAN 2 8.0 fl 7.4-10. complet PLATELE 013 4 ed T 14:09 VOLUME Granulo 11-27-2 61.4 % 37.0-80 complet cytes 013 .0 ed Fr Bld 14:09 Auto LYMPH % 11-27-2 29.0 % 10-50 complet 013 ed 14:09 Monocyt 11-27-2 6.3 % 1.7-9.3 complet es Fr 013 ed Bld 14:09 Auto Eosinop 26-2 2.3 % 0.1-12. complet hil Fr 013 0 ed Bld 14:09 Auto Basophi -26-2 0.9 % 0.1-2.0 complet ls Fr 013 ed Bld 14:09 Auto Granulo -26-2 3.9 1.3-8.0 complet cytes # 013 K/mm3 ed Bld 14:09 Auto Lymphoc -26-2 1.8 0.7-4.5 complet ytes Fr 013 K/mm3 ed Bld 14:09 Auto Monocyt 08-26-2 0.4 0.1-1.0 complet es # 013 K/mm3 ed Bld 14:09 Auto Eosinop -26-2 0.1 0.0-0.4 complet hil # 013 K/mm3 ed Bld 14:09 Auto Basophi -26-2 0.1 0-0.2 complet ls # 013 K/MM3 ed Bld 14:09 Auto Encounters Encounter Start End Date Code Location Performer Type Date Emergency NA CHI (ER) 3 14:02 3 17:06 [facility] KATHYA
--- OUTSIDE RECORDS SUMMARY | 2017-01-31 21:18 | External Medical Summary Rpt | CCD ---
Author Author , HOWARD LAWRENCE Address Unknown Phone [email or web address] Care Team Providers Care Senior Production Supervisor Name Role Phone Preeti MCKENZIE, Unavailable Unavailable Preeti MCKENZIE Purpose Continuity of Care Document - 11-27-2012 through 2016 Problems Code Diagnosis DOS Provider Status [id number] Alzheimer's [facility] [id number] Chronic [facility] Allergies, Adverse Reactions, Alerts Type Drug Allergy [...] NA [facility]I (ER) 3 14:02 3 17:06 [facility] KATHYA
--- OUTSIDE RECORDS SUMMARY | 2017-01-31 21:18 | External Medical Summary Rpt | CCD ---
Demographics Preferred Language Sinhala Marital Status Unknown Shinto Affiliation Unknown Race Unknown Ethnic Group Unknown Author Author , HOWARD LAWRENCE Address Unknown Phone Immunization Unable to retrieve immunization data due to connection failure with Immunization Registry. Please try again later.
--- OUTSIDE RECORDS SUMMARY | 2017-01-31 21:19 | External Medical Summary Rpt ---
Author Author [facility] Felipe, [employer] Organization [employer] Address Unknown Phone Unavailable Results Urinalysis dipstick W Reflex Microscopic panel in Urine Observa Value Referen Units Interpr Notes Date tion ce etation Range Appeara CLEAR CLEAR No No No Jan 31 nce of informa informa informa 2016 Urine tion in tion in tion in 7:59 PM source source source data data data Bacteri 4+ O No No No Jan 31 a informa informa informa 2016 [Presen tion in tion in tion in 7:59 PM ce] in source source source Urine data data data sedimen t by Light microsc opy Bilirub NEGATIV NEG No No No Jan 31 in E informa informa informa 2016 [Presen tion in tion in tion in 7:59 PM ce] in source source source Urine data data data by Test strip Erythro TRACE-L NEG No No No Jan 31 cytes YSED informa informa informa 2016 [Presen tion in tion in tion in 7:59 PM ce] in source source source Urine data data data Color YELLOW YELLOW No No No Jan 31 of informa informa informa 2016 Urine tion in tion in tion in 7:59 PM source source source data data data Glucose NEG No No No Jan 31 [Mass/vol informati informati informati 2016 7:59 ume] in on in on in on in PM Urine by source source source Test data data data strip Hyaline 10-20 NONE #/lpf No No Jan 31 casts informa informa 2016 [Presen tion in tion in 7:59 PM ce] in source source Urine data data sedimen t by Light microsc opy Ketones NEGATIV NEG mg/dL No No Jan 31 E informa informa 2016 [Presen tion in tion in 7:59 PM ce] in source source Urine data data by Automat ed test strip Mucus 1+ NEG No Abnorma No Jan 31 [Presen informa l informa 2016 ce] in tion in tion in 7:59 PM Urine source source sedimen data data t by Light microsc opy Nitrite NEGATIV NEG No No No Jan 31 E informa informa informa 2016 [Presen tion in tion in tion in 7:59 PM ce] in source source source Urine data data data by Test strip pH of 5.0 - 8.5 No Normal No Jan 31 Urine informati informati 2016 7:59 on in on in PM source source data data Protein NEG mg/dL No No Jan 31 [Mass/vol informati informati 2016 7:59 ume] in on in on in PM Urine by source source Automated data data test strip Erythro OCC 0 rbc/hpf No No Jan 31 cytes informa informa 2016 [Presen tion in tion in 7:59 PM ce] in source source Urine data data sedimen t by Light microsc opy Specific 1.005 - No Normal No Jan 31 gravity 1.030 informati informati 2016 7:59 of Urine on in on in PM source source data data Epithel OCC OCC #/hpf No No Jan 31 ial informa informa 2016 cells.s tion in tion in 7:59 PM quamous source source data data [Presen ce] in Urine sedimen t by Microsc opy high power field Urobili 0.2 NEG E.U./dL No No Jan 31 nogen informa informa 2016 [Presen tion in tion in 7:59 PM ce] in source source Urine data data by Test strip Leukocy [20 O wbc/hpf No No Jan 31 casie wbc/hpf informa informa 2016 [#/volu ; 50 tion in tion in 7:59 PM me] in wbc/hpf source source Urine ] data data Urinalysis dipstick W Reflex Microscopic panel in Urine Observa Value Referen Units Interpr Notes Date tion ce etation Range Appeara CLEAR CLEAR No No No Jan 31 nce of informa informa informa 2016 Urine tion in tion in tion in 7:59 PM source source source data data data Bilirub NEGATIV NEG No No No Jan 31 in E informa informa informa 2016 [Presen tion in tion in tion in 7:59 PM ce] in source source source Urine data data data by Test strip Erythro TRACE-L NEG No No No Jan 31 cytes YSED informa informa informa 2016 [Presen tion in tion in tion in 7:59 PM ce] in source source source Urine data data data Color YELLOW YELLOW No No No Jan 31 of informa informa informa 2017 Urine tion in tion in tion in 7:59 PM source source source data data data Glucose NEG No No No Jan 31 [Mass/vol informati informati informati 2016 7:59 ume] in on in on in on in PM Urine by source source source Test data data data strip Ketones NEGATIV NEG mg/dL No No Jan 31 E informa informa 2016 [Presen tion in tion in 7:59 PM ce] in source source Urine data data by Automat ed test strip Mucus 1+ NEG No Abnorma No Jan 31 [Presen informa l informa 2016 ce] in tion in tion in 7:59 PM Urine source source sedimen data data t by Light microsc opy Nitrite NEGATIV NEG No No No Jan 31 E informa informa informa 2016 [Presen tion in tion in tion in 7:59 PM ce] in source source source Urine data data data by Test strip pH of 5.0 - 8.5 No Normal No Jan 31 Urine informati informati 2016 7:59 on in on in PM source source data data Protein NEG mg/dL No No Jan 31 [Mass/vol informati informati 2016 7:59 ume] in on in on in PM Urine by source source Automated data data test strip Specific 1.005 - No Normal No Jan 31 gravity 1.030 informati informati 2016 7:59 of Urine on in on in PM source source data data Urobili 0.2 NEG E.U./dL No No Jan 31 nogen informa informa 2016 [Presen tion in tion in 7:59 PM ce] in source source Urine data data by Test strip CBC W Auto Differential panel in Blood Observa Value Referen Units Interpr Notes Date tion ce etation Range Basophils 0 - 0.2 K/MM3 Normal No Jan 31 informati 2016 7:30 [#/volume on in PM ] in source Blood by data Automated count Basophils 0.1 - 2.0 % Normal No Jan 31 / informati 2016 7:30 leukocyte on in PM s in source Blood by data Automated count Eosinophi 0.0 - 0.4 K/mm3 Normal No Jan 31 ls informati 2016 7:30 [#/volume on in PM ] in source Blood by data Automated count Eosinophi 0.1 - % Normal No Jan 31 ls/100 12.0 informati 2016 7:30 leukocyte on in PM s in source Blood by data Automated count Granulocy 1.3 - 8.0 K/mm3 Normal No Jan 31 casie informati 2016 7:30 [#/volume on in PM ] in source Blood by data Automated count Granulocy 37.0 - % High No Jan 31 casie/100 80.0 informati 2016 7:30 leukocyte on in PM s in source Blood by data Automated count Hematocri 42.0 - % Normal No Jan 31 t [Volume 52.0 informati 2016 7:30 on in PM Fraction] source of Blood data Hemoglobi 14.1 - g/dL Normal No Jan 31 n 18.0 informati 2016 7:30 [Mass/vol on in PM ume] in source Blood data Lymphocyt 0.7 - 4.5 K/mm3 Normal No Jan 31 es informati 2016 7:30 [#/volume on in PM ] in source Unspecifi data ed specimen by Automated count Lymphocyt 10 - 50 % Normal No Jan 31 es informati 2016 7:30 [#/volume on in PM ] in source Unspecifi data ed specimen by Automated count Erythrocy 27 - 31.2 pg Normal No Jan 31 te mean informati 2016 7:30 corpuscul on in PM ar source hemoglobi data n [Entitic mass] Erythrocy 31.8 - g/dl Normal No Jan 31 te mean 35.4 informati 2016 7:30 corpuscul on in PM ar source hemoglobi data n concentra tion [Mass/vol ume] by Automated count Erythrocy 82.2 - fl Normal No Jan 31 te mean 97.8 informati 2016 7:30 corpuscul on in PM ar volume source [Entitic data volume] by Automated count Monocytes 0.1 - 1.0 K/mm3 Normal No Jan 31 informati 2016 7:30 [#/volume on in PM ] in source Blood by data Automated count Monocytes 1.7 - 9.3 % Normal No Jan 31 /100 informati 2016 7:30 leukocyte on in PM s in source Blood by data Automated count Platelet 7.4 - fl Normal No Jan 31 mean 10.4 informati 2016 7:30 volume on in PM [Entitic source volume] data in Blood by Automated count Platelets 142 - 424 K/mm3 Normal No Jan 31 inform2016 7:30 [#/volume on in PM ] in source Blood data Erythrocy 4.6 - 6.2 M/mm3 Normal No Jan 31 casie inform2016 7:30 [#/volume on in PM ] in source Amniotic data fluid Erythrocy 11.5 - % Normal No Jan 31 te 17.5 informati 2016 7:30 distribut on in PM ion width source [Entitic data volume] by Automated count Leukocyte 4.8 - K/MM3 Normal No Jan 31 s 10.8 informati 2016 7:30 [#/volume on in PM ] in source Blood data Differential panel, method unspecified - Observa Value Referen Units Interpr Notes Date tion ce etation Range LYMPH 10 10 - 50 % Normal No Jan 31 inform2016 tion in 7:30 PM source data Monocytes 2 - 9 % Normal No Jan 31 /100 informati 2016 7:30 leukocyte on in PM s in source Blood by data Automated count Platele NORMAL No No No No Jan 31 ts informa informa informa informa 2016 [Presen tion in tion in tion in tion in 7:30 PM ce] in source source source source Blood data data data data by Light microsc opy Neutrophi 42 - 76 % High No Jan 31 ls 2016 7:30 [#/volume on in PM ] in source Blood by data Automated count Cells No #CELLS No No Jan 31 Counted informati informati informati 2016 7:30 Total [#] on in on in on in PM in Blood source source source data data data Natriutietic peptide B [Mass/volume] in Serum or Plasma Observa Value Referen Units Interpr Notes Date tion ce etation Range Natriutie 0 - 100 pg/mL Normal No Jan 31 tic inform2016 7:30 peptide B on in PM source [Mass/vol data ume] in Serum or Plasma Troponin I.cardiac [Mass/volume] in Serum or Plasma Observa Value Referen Units Interpr Notes Date tion ce etation Range Troponin 0.00 - ng/mL Normal No Jan 31 I.cardiac 0.06 informati 2016 7:30 on in PM [Mass/vol source ume] in data Serum or Plasma Lactate [Moles/volume] in Blood Observa Value Referen Units Interpr Notes Date tion ce etation Range Lactate 0.4 - 2.0 mmol/L Normal No Jan 31 [Moles/vo informati 2016 7:30 lume] in on in PM Blood source data Comprehensive metabolic 2000 panel in Serum or Plasma Observa Value Referen Units Interpr Notes Date tion ce etation Range Albumin/G 1.1 - 1.8 No Low No Jan 31 lobulin informati informati 2016 7:30 [Mass on in on in PM ratio] in source source Serum or data data Plasma Albumin 3.4 - 5.0 gm/dL Normal No Jan 31 [Mass/vol informati 2016 7:30 ume] in on in PM Serum or source Plasma data Alkaline 46 - 116 U/L Normal No Jan 31 phosphata informati 2016 7:30 se on in PM [Enzymati source c data activity/ volume] in Serum or Plasma Bilirubin 0.2 - 1.0 mg/dL Normal No Jan 31 .total informati 2016 7:30 [Mass/vol on in PM ume] in source Serum or data Plasma Urea 7 - 18 mg/dL High No Jan 31 nitrogen informati 2016 7:30 [Mass/vol on in PM ume] in source Serum or data Plasma Calcium 8.5 - mg/dL Normal No Jan 31 [Mass/vol 10.1 informati 2016 7:30 ume] in on in PM Serum or source Plasma data Chloride 98 - 107 mmoL/L Normal No Jan 31 [Moles/vo informati 2016 7:30 lume] in on in PM Serum or source Plasma data Carbon 21.0 - mmoL/L High No Jan 31 dioxide, 32.0 informati 2017 7:30 total on in PM [Moles/vo source lume] in data Serum or Plasma Creatinin 0.70 - mg/dL High No Jan 31 e 1.30 informati 2017 7:30 [Mass/vol on in PM ume] in source Serum or data Plasma Creatinin 50 - 200 ML/MIN Low No Jan 31 e renal informati 2017 7:30 clearance on in PM source predicted data by Cockcroft -Gault formula Estimated >60 ML/MIN No REFERENCE Jan 31 informati RANGE: 2017 7:30 glomerula on in >60 PM r source ML/MIN/1. filtratio data 73 SQUARE n rate METERSIf (GF this patient is -A merican, then multiply theresult by 1.210. Globulin 1.3 - 3.2 gm/dL High No Jan 31 [Mass/vol informati 2016 7:30 ume] in on in PM Serum source data Glucose 74 - 106 mg/dL High No Jan 31 [Mass/vol informati 2016 7:30 ume] in on in PM Serum or source Plasma data Potassium 3.5 - 5.1 mmoL/L Normal No Jan 31 inform2016 7:30 [Moles/vo on in PM lume] in source Serum or data Plasma Sodium 136 - 145 mmoL/L Normal No Jan 31 [Moles/vo informati 2016 7:30 lume] in on in PM Serum or source Plasma data Aspartate 15 - 37 U/L Normal No Jan 312016 7:30 aminotran on in PM sferase source [Enzymati data c activity/ volume] in Serum or Plasma Alanine 12 - 78 U/L Low No Jan 31 aminotran informati 2016 7:30 sferase on in PM [Enzymati source c data activity/ volume] in Serum or Plasma Protein 6.4 - 8.2 gm/dL Normal No Jan 31 [Mass/vol informati 2016 7:30 ume] in on in PM Serum or source Plasma data Lipase [Enzymatic activity/volume] in Serum or Plasma Observa Value Referen Units Interpr Notes Date tion ce etation Range Lipase 73 - 393 U/L Normal No Jan 31 [Enzymati informati 2016 7:30 c on in PM activity/ source volume] data in Serum or Plasma Basic metabolic panel in Blood Observa Value [...] Normal No Oct 15 dioxide, 32.0 informati 2017 6:18 total on in AM [Moles/vo source lume] in data Serum or Plasma Creatinin 0.70 - mg/dL High No Oct 15 e 1.30 informati 2016 6:18 [Mass/vol on in AM ume] in source Serum or data Plasma Creatinin 50 - 200 ML/MIN Low No Oct 15 e renal informati 2016 6:18 clearance on in AM source predicted [...] - 2.0 % Normal No Oct 15 informati 2016 6:18 leukocyte on in AM [...] No Oct 15 t [Volume 52.0 informati 2017 6:18 on in AM Fraction] source of Blood data Hemoglobi 14.1 - g/dL Low No Oct 15 n 18.0 informati 2017 6:18 [Mass/vol on in AM ume] in source Blood data Lymphocyt 0.7 - 4.5 K/mm3 Normal No Oct 15 es informati 2017 6:18 [#/volume on in AM ] in source Unspecifi data ed specimen by Automated count Lymphocyt 10 - 50 % Normal No Oct 15 es informati 2017 6:18 [#/volume on in AM ] in source Unspecifi data ed specimen by Automated count Erythrocy 27 - 31.2 pg Normal No Oct 15 te mean informati 2016 6:18 corpuscul on in AM ar source hemoglobi data n [Entitic mass] Erythrocy 31.8 - g/dl Normal No Oct 15 te mean 35.4 informati 2017 6:18 corpuscul on in AM ar source hemoglobi data n concentra tion [Mass/vol ume] by Automated count Erythrocy 82.2 - fl Normal No Oct 15 te mean 97.8 informati 2017 6:18 corpuscul on in AM ar volume source [Entitic data volume] by Automated count Monocytes 0.1 - 1.0 K/mm3 Normal No Oct 15 informati 2017 6:18 [#/volume on in AM ] in source Blood by data Automated count Monocytes 1.7 - 9.3 % Normal No Oct 14 /100 informati 2017 6:18 leukocyte on in AM s in source Blood by data Automated count Platelet 7.4 - fl Normal No Oct 15 mean 10.4 informati 2017 6:18 volume on in AM [Entitic source volume] data in Blood by Automated count Platelets 142 - 424 K/mm3 Low No Oct 15 informati 2017 6:18 [#/volume on in AM ] in source Blood data Erythrocy 4.6 - 6.2 M/mm3 Low No Oct 15 casie informati 2017 6:18 [#/volume on in AM ] in source Amniotic data fluid Erythrocy 11.5 - % Normal No Oct 15 te 17.5 informati 2017 6:18 distribut on in AM ion width [...] [facility] PM [Mass/vol source ume] in data [id number] [place], [place] [id number] Dater Assembler: Klaus Elaine PhD, Phone: [phone] 1947:ANGELES MIN B12 previousl y reported as: 384 25-Hydroxyvitamin D [Mass/volume] in Serum or Plasma Observa Value Referen Units Interpr Notes Date tion ce etation Range 25-Hydrox 30.0 - ng/mL No Vitamin D Oct 14 yvitamin 100.0 informati 2016 1:40 D on in deficienc PM [Mass/vol source y has ume] in data been Serum or defined Plasma by the [place] [facility] e and an Endocrine Society practice guideline as alevel of serum 25-OH vitamin D less than 20 ng/mL (1,2).The Endocrine Society went on to further define vitamin Dinsuffic iency as a level between 21 and 29 ng/mL (2).1. IOM (Institut e of Medicine) . 2010. Dietary reference intakes for calcium and D. [place]: [employer] al Academies Press.2. Shekhar MF, Morgan NC, Jonah Quarles BRANCH, et al.Evalua tion, treatment , and preventio n of vitamin Ddeficien cy: an Endocrine Society clinical practiceg uideline. JCEM. 2010; 96(7):191 1-30.Perf ormed at: CB - [facility] [id number] [place], [place] [id number] Dater Assembler: Klaus Elaine PhD, Phone: [phone] 1927:VIT D 25-OH TOT previousl y reported [...] - 0.2 K/MM3 Normal No Oct 14 inform2016 1:40 [#/volume on in PM ] in source Blood by data Automated count Basophils 0.1 - 2.0 % Normal No Oct 14 / informati 2016 1:40 leukocyte on in PM s in source Blood by data Automated count Eosinophi 0.0 - 0.4 K/mm3 Normal No Oct 14 ls ati 2016 1:40 [...] Normal No Oct 14 t [Volume 52.0 informati 2016 1:40 on in PM Fraction] source of Blood data Hemoglobi 14.1 - g/dL Normal No Oct 14 n 18.0 informati 2016 1:40 [Mass/vol on in PM ume] in source Blood data Lymphocyt 0.7 - 4.5 K/mm3 Low No Oct 14 es informati 2016 1:40 [#/volume on in PM ] in source Unspecifi data ed specimen by Automated count Lymphocyt 10 - 50 % Low No Oct 14 es inform2016 1:40 [#/volume on in PM ] in source Unspecifi data ed specimen by Automated count Erythrocy 27 - 31.2 pg Normal No Oct 14 te mean inform2016 1:40 corpuscul on in PM ar source hemoglobi data n [Entitic mass] Erythrocy 31.8 - g/dl Normal No Oct 14 te mean 35.4 informati 2016 1:40 corpuscul on in PM ar source hemoglobi data n concentra tion [Mass/vol ume] by Automated count Erythrocy 82.2 - fl Normal No Oct 14 te mean 97.8 informati 2016 1:40 corpuscul on in PM ar volume source [Entitic data volume] by Automated count Monocytes 0.1 - 1.0 K/mm3 Normal No Oct 14 informati 2016 1:40 [#/volume on in PM ] in source Blood by data Automated count Monocytes 1.7 - 9.3 % Normal No Oct 14 /100 informati 2016 1:40 leukocyte on in PM [...] 6.2 M/mm3 Normal No Oct 14 casie informati 2016 1:40 [#/volume on in PM ] in source Amniotic data fluid Erythrocy 11.5 - % Normal No Oct 14 te 17.5 informati 2016 1:40 distribut on in PM ion width source [Entitic data volume] by Automated count Leukocyte 4.8 - K/MM3 High No Oct 14 s 10.8 informati 2016 1:40 [#/volume on in PM ] in source Blood data Differential panel, method unspecified - Observa Value Referen Units Interpr Notes Date tion ce etation Range Neutrophi 0 - 8 % Normal No Oct 14 ls.band informati 2016 1:40 form/100 on in PM leukocyte source s in data Blood by Automated count Basophils 0 - 1 % Normal No Oct 14 informati 2016 1:40 leukocyte on in PM s in source Blood by data Automated count LYMPH 9 10 - 50 % Low No Oct 142016 tion in 1:40 PM source data Monocytes 2 - 9 % Normal No Oct 14ati 2016 1:40 leukocyte on in PM s [...] No #CELLS No No Oct 14 Counted informati informati informati 2016 1:40 Total [#] on in on in on in PM in Blood source source source data data data Urinalysis dipstick W Reflex Microscopic panel in Urine Observa Value Referen Units Interpr Notes Date tion ce etation Range Appeara CLOUDY CLEAR No No No Oct 14 nce of informa informa informa 2016 Urine tion [...] mg/dL High No Oct 14 [Mass/vol informati 2017 1:35 ume] in on in PM Urine [...] No No Oct 14 ial informa informa 2016 cells.s tion in tion in 1:35 PM [...] Normal No Oct 14 Urine informati informati 2016 1:35 on in on in PM source [...]
--- OUTSIDE RECORDS SUMMARY | 2017-01-31 21:19 | External Medical Summary Rpt ---
[...] [facility] PM [Mass/vol source ume] in data [id number] [place], [place] [id number] Outreach Clinician: Klaus Elaine PhD, Phone: [phone] 1947:ANGELES MIN B12 previousl y reported as: 384 25-Hydroxyvitamin D [Mass/volume] in Serum or Plasma Observa Value Referen Units Interpr Notes Date tion ce etation Range 25-Hydrox 30.0 - ng/mL No Vitamin D Oct 14 yvitamin 100.0 informati 2016 1:40 D on in deficienc PM [Mass/vol source y has ume] in data been Serum or defined Plasma by the [place] [facility] e and an Endocrine Society practice guideline [...] 96(7):191 1-30.Perf ormed at: [facility] - [facility] [id number] [place], [place] [id number] Outreach Clinician: Klaus Elaine PhD, Phone: [phone] 1927:VIT D 25-[place] TOT previousl y reported [...]
--- NOTE | 2017-01-31 21:29 | RADIOLOGY REPORT PS360 ---
CT HEAD WITHOUT CONTRAST CT BONE WINDOWS included ORDERING PHYSICIAN : Sergio Ariza MD PATIENT AGE: 81 years GENDER: Male PROCEDURE: Routine axial images headwithout contrast. Brain & bone windows HISTORY: CONFUSION : mental status change COMPARISON: No previous studies FINDINGS: Cerebral atrophy. Age-related Chronic small vessel deep white matter ischemic changes. No acute intracranial findings. No hemorrhage. No territorial infarct No mass effect or mass lesion. No subdural nor extra-axial collection. The posterior fossa appear satisfactory and unremarkable. The skull is intact. The visualized portions of the paranasal sinuses are fairly clear with only scant mucosal thickening ethmoid air cells and inferior left frontal sinus. Mastoid air cells, middle ear & IACs are unremarkable. Cerumen at the external canals IMPRESSION: No acute intracranial findings. Cerebral atrophy Age-related Chronic small vessel deep white matter changes
--- NOTE | 2017-01-31 21:44 | RADIOLOGY REPORT PS360 ---
CHEST-AP VIEW ONLY Ordering physician: Abdi Thurman MD Age: 81 years Male INDICATION: chest symptomsconfusion PROCEDURE: CHEST-AP VIEW ONLY COMPARISON No previous studies FINDINGS:. Right chest Scarring/atelectasis versus Question minimal patchy infiltrate at the right midlung Also question minimal infiltrate right suprahilar region medial RUL. However does not obscure the margin of right mediastinum. No prior studies for comparison determine if there are chronic changes account for either of above findings.. Question slight prominence right hilar region, but I suspect this accentuated due to to the patient's slightly leftward rotation of chest. . Left lung clear. No pneumothorax. No pleural effusion. Heart normal size.Loop record noted projected over the left heart. Upper Normal pulmonary vascularity. Incidental note nonspecific Density inferior left neck just above head left clavicle.,Trachea remains midline thus this could merely be redundant soft tissues. Clinical correlation required. IMPRESSION Question/Suspect minimal infiltrate right suprahilar region towards medial RUL. Scarring/atelectasis vs minor patchy infiltrate right midlung projected over anterior right third rib end No prior studies for comparison . Follow-up chest film recommended to better establish baseline. Nonspecific density just superior to head of left clavicle may merely be redundant soft tissues neck but warrants correlation.
[2017-01-31 23:36] VITALS: BP 146/99
[2017-01-31 23:45] VITALS: BP 175/82
[2017-02-01] VITALS: BP 154/83
[2017-02-01 03:44] VITALS: BP 182/90
[2017-02-01 05:00] VITALS: BP 168/88
--- NOTE | 2017-02-01 07:38 | PHARMACY CLINIC NOTE ---
Patient Demographics Patient Demographics Admission date: 01/31/17 Date: 02/01/17 Time: 0738 Allergies Coded Allergies: Penicillins (01/31/17) HEIGHT- FT: 6 IN: 0.00 K.686 VTE General Information Labs: Laboratory Tests 01/31 1930 Hematology Hgb (14.1 - 18.0 g/dL) 15.6 Hct (42.0 - 52.0 %) 47.9 Plt Count (142 - 424 K/mm3) 171 Disclaimer The following section includes nursing documentation that has been pulled in for pharmacy review. Patient's VTE score: 1 Patient's VTE Risk: VERY LOW RISK Clinical trial participant? No VTE prophylaxis NQF [id number] VTE prophylaxis ordered? Yes Type of prophylaxis/treatment: SHAGUFTA at 0738
[2017-02-01 08:13] VITALS: BP 111/60
[2017-02-01 08:19] LABS: HEMOGLOBIN 14.1 g/dL (14.1-18.0); LYMPH # 1.5 K/mm3 (0.7-4.5); LYMPH % 18.2 % (10-50)
--- NOTE | 2017-02-01 08:48 | HISTORY AND PHYSICAL REPORT ---
See Addendum History and Physical ([facility]) Date of admission: 01/31/17 Chief complaint: AMS History: History of Present Illness: Mr Knox is an 81 year old male with a history of Alzheimers and BPH who was brought to [facility] ER via ambulance for evaluation last PM. Patient lives at home with his . He walks with a walker and at baseline has dementia. Over the past several days family has noted declining mental status. Yesterday he was in bed all day with altered mental status throughout the day. He did not complaint of pain to his except for some chronic low back pain which she states is unchanged. On admission the patient did not contribute to history. Family states his blood pressure has been dropping at times. He has had a little bit of cough but otherwise no nausea, vomiting or diarrhea or other complaints. With evaluation in the Er CT of the head showed nothing acute. Chest X-ray showed a possible infiltrate. He was felt to have a UTI and was admitted for further evaluation and treatment. To not: the Home Health nurse called A 01/28/17 and described the intermittent low BP and patient weakness. Family was unable to bring him to the office at [facility] for evaluation. Patient was started on florinef and family instructed to have him brought to the ER if condition warrented. This AM patient does not know why he is in the hospital. He denies CP and SOB; states his feet hurt. He is a poor historian. Past Medical History: Medical History: CAD? No Angina: No OH: Yes Hypertension? No Hyperlipidemia? Yes CHF? No DVT? No PE? No COPD? No Asthma? No Anemia? No GERD? Yes Gastric ulcers? Yes GI Bleed? No Hernia? No Thyroid Problems? Yes Hypothyroidism? No CVA? No Seizures? No Diabetes? No UTI? No Stones? No BPH? Yes GB Disease: No Nephritic Syndrome? No Asplenia? No Hepatitis? No Sickle Cell Disease? No Arthritis? No Migraines? No Cataracts? No Glaucoma? No MRSA? No HIV? No TB? No Anxiety? No Depression? No Cancer? No More? Yes Additional hx: P[employer]INSON AND ALHIEMERS Surgical history: Previous Surgery? Prostate; bilaterl cataract; left breast lumpectomy Medications: Active Scripts Polyethylene Glycol 3350 (Miralax) 17 GM PO DAILY #30 CAN Ref 6 Prov: 10/19/16 Pramipexole Di-HCl (Mirapex) 0.125 MG PO TID #90 TAB Ref 5 Prov: 10/19/16 Carbidopa/Levodopa (Carbidopa-Levodopa 25-100 Tab) 1 TAB PO QID #120 TAB Ref 4 Prov: 10/19/16 Levofloxacin (Levaquin 500MG) 500 MG PO Q48H #5 TAB Ref 1 Prov: 10/19/16 Discontinued Scripts Potassium Chloride (K-Tab ER) 10 MEQ PO DAILY #30 Ref 6 Prov: 10/19/16 DC: 02/01/17 0842 Reported Medications Furosemide (Lasix 20MG) 20 MG PO QD PRN Aspirin (Lizette Aspirin Regimen) 81 MG PO QHS Allopurinol 300 MG PO DAILY CHOLECALCIFEROL (VITAMIN D3) (Vitamin D-3) 2,000 IU PO DAILY Gabapentin 300 MG PO BID LEVOCETIRIZINE DIHYDROCHLORIDE (Levocetirizine Dihydrochloride) 5 MG PO DAILY Memantine HCl/Donepezil HCl (Namzaric 21 MG-10 MG Capsule) 1 EACH PO NIGHT TAMSULOSIN HCL (Tamsulosin 0.4MG) 0.4 MG PO QHS ASPIRIN (Aspirin) 81 MG PO DAILY Fludrocortisone Acetate 0.1 MG PO AT HS Levothyroxine Sodium (Levothyroxine 0.025MG) 0.025 MG PO DAILY Discontinued Reported Medications Furosemide (Lasix) 20 MG PO Q48H Gabapentin (Gabapentin 300MG) 600 MG PO QHS MEMANTINE HCL/DONEPEZIL HCL (Namzaric 28 MG-10 MG Capsule) 1 ECC PO QHS #30 DC: 02/01/17 0842 Finasteride 5 MG PO QHS #90 DC: 02/01/17 0842 LEVOCETIRIZINE DIHYDROCHLORIDE (Levocetirizine Dihydrochloride) 5 MG PO DAILY #90 DC: 02/01/17 0842 TAMSULOSIN HCL (Tamsulosin HCl) 0.4 MG PO QHS #90 DC: 02/01/17 0842 Allopurinol 300 MG PO DAILY Pramipexole Di-HCl (Mirapex) 0.125 MG PO TID CARBIDOPA 25/LEVODOPA 100 (Carbidopa-Levodopa 25-100 Tab) 1 TABLET PO TID Gabapentin (Gabapentin 300MG) 300 MG PO BID CHOLECALCIFEROL (VITAMIN D3) (Vitamin D) 1,000 IUNITS PO DAILY Prednisone (Prednisone 5MG) 5 MG PO DAILY Finasteride 5 MG PO DAILY Allergies: Coded Allergies: Penicillins (10/14/16) sulfamethoxazole (From BACTRIM) (10/14/16) trimethoprim (From BACTRIM) (10/14/16) Family History: Family history: Postive for: DM, cancer. Social History: Smoking Hx Tobacco: Yes Smoker: Never Smoker Type: Cigarettes Packs/day: N/A Are you exposed to second hand No Alcohol: Alcohol: No Hx of Drug Use: Drug Use? No Review of Systems: Cardiovascular No: chest pain. Respiratory Positive for: non-productive. No: shortness of air. (male) No: frequency. Musculoskeletal Positive for: extremity pain. Psychiatric Positive for: confused. Physical Exam: Vital signs: 1ST Vital Signs Result Date Time Pulse Ox 96 01/31 1910 B/P 134/76 01/31 1910 Temp 98.4 01/31 1910 Pulse 61 01/31 1910 Resp 20 01/31 1910 O2 Delivery ROOM AIR 01/31 233 Exam: General appearance: alert, active, no acute distress, eating breakfast Eyes: anicteric, pupils reactive to light ENT: mucous membranes moist Neck: no carotid bruit, full range of motion, lymphadenopathy (absent), thyroid (normal) Cardiovascular: regular rate & rhythm Respiratory: clear to auscultation (bilat anterior and posterior) ABD: non-distended, soft, no tenderness, no guarding, bowel sounds present Extremities: bilateral ankle edema Neuro: alert, disoriented Lab data: Labs: Laboratory Tests 02/01/17 0807: WBC 8.3, RBC 4.75, Hgb 14.1, Hct 44.6, MCV 94.0, RDW 14.2, Plt Count 169, MPV 8.6, Gran % 76.3, Gran # 6.3, Lymphocytes % 18.2, Monocytes % 3.3, Eosinophils % 1.6, Basophils % 0.5, Lymphocytes # 1.5, Monocytes # 0.3, Eosinophils # 0.1, Basophils # 0.0, PUBS MCHC 31.7 L, MCH 29.8 01/31/171958: Urine Color YELLOW, Urine Appearance CLEAR, Urine pH 6.0, Ur Specific Milo 1.015, Urine Protein NEGATIVE, Urine Ketones NEGATIVE, Urine Blood TRACE-LYSED, Urine Nitrate NEGATIVE, Urine Bilirubin NEGATIVE, Urine Urobilinogen 0.2, Ur Leukocyte Esterase 1+ H, Urine RBC OCC, Urine WBC 20-50, Ur Squamous Epith Cells OCC, Urine Bacteria 4+, Hyaline Casts 10-20, Urine Glucose NEGATIVE 01/31/171929: TSH 1.98, Thyroxine (T4) 7.9 01/31/171929: Lactic Acid 1.8 01/31/171929: Troponin I 0.02, B-Natriuretic Peptide 27 01/31/171929: Sodium 140, Potassium 4.0, Chloride 99, Carbon Dioxide 34 H, BUN 35 H, Creatinine 1.8 H, Estimated Creat Clear 42 L, Estimated GFR (MDRD) 36, Glucose 177 H, Calcium 9.2, Total Bilirubin 0.4, AST 19, ALT 11 L, Alkaline Phosphatase 89, Total Protein 8.0, Albumin 4.0, Globulin 4.0 H, Albumin/ Globulin Ratio 1.0 L, Lipase 366, WBC 8.1, RBC 5.18, Hgb 15.6, Hct 47.9, MCV 92.5, RDW 14.4, Plt Count 171, MPV 7.7, Gran % 87.0 H, Gran # 7.1, Total Counted 100, Lymphocytes % 10.0, Monocytes % 2.2, Eosinophils % 0.4, Basophils % 0.4, Neutrophils 86 H, Lymphocytes (Manual) 10, Lymphocytes # 0.8, Monocytes ( Manual) 4, Monocytes # 0.2, Eosinophils # 0.0, Basophils # 0.0, Platelet Estimate NORMAL, PUBS MCHC 32.6, MCH 30.2 Microbiology 01/31 1959 URINE,FO: Urine Culture - RES 01/31 1930 BLOOD: Anaerobic Blood Culture - RECD 01/31 1930 BLOOD: Aerobic Blood Culture - RECD 01/31 1930 BLOOD: Anaerobic Blood Culture - RECD 01/31 1930 BLOOD: Aerobic Blood Culture - RECD Radiology results: Results: 01/31/17 CXR IMPRESSION Question/Suspect minimal infiltrate right suprahilar region towards medial RUL. Scarring/atelectasis vs minor patchy infiltrate right midlung projected over anterior right third rib end No prior studies for comparison . Follow-up chest film recommended to better establish baseline. Nonspecific density just superior to head of left clavicle may merely be redundant soft tissues neck but warrants correlation. Head CT 01/31/17 IMPRESSION: No acute intracranial findings. Cerebral atrophy Age-related Chronic small vessel deep white matter changes Diagnosis(es): 1. Weakness 2. Confusion 3. UTI (urinary tract infection) 4. Renal insufficiency Plan: Continue with IVF and ABX; will have PT see pt as well at 0848 at 0946
[2017-02-01] MEDS ORDERED: PREDNISONE 5MG.5 MG PO (13:44)
[2017-02-01] MEDS ORDERED: MIRALAX(PO17 GM/1 PA PO (14:11)
[2017-02-01 15:27] VITALS: BP 135/73
[2017-02-01 20:00] VITALS: BP 157/77
[2017-02-02 03:44] VITALS: BP 168/86
--- NOTE | 2017-02-02 07:35 | ACUTE CARE PROGRESS NOTE (QUA) ---
Progress Notes Subjective Date 02/02/17 Time 0726 Note Eating breakfast; denies pain and breathing is better; has been OOB; see PT note; voiding QS; no stools Objective Findings Laboratory Tests 02/01/17 0807: Sodium 142, Potassium 3.8, Chloride 105, Carbon Dioxide 31, BUN 32 H, Creatinine 1.6 H, Estimated Creat Clear 45 L, Estimated GFR (MDRD) 42, Glucose 134 H, Calcium 8.6, WBC 8.3, RBC 4.75, Hgb 14.1, Hct 44.6, MCV 94.0, RDW 14.2, Plt Count 169, MPV 8.6, Gran % 76.3, Gran # 6.3, Lymphocytes % 18.2, Monocytes % 3.3, Eosinophils % 1.6, Basophils % 0.5, Lymphocytes # 1.5, Monocytes # 0.3, Eosinophils # 0.1, Basophils # 0.0, PUBS MCHC 31.7 L, MCH 29.8 Vital Signs Date Time Temp Pulse Resp B/P Pulse O2 O2 Flow FiO2 Ox Delivery Rate 02/02 0344 98.0 54 18 168/86 96 ROOM AIR 02/01 2040 98.0 51 18 157/77 98 02/01 2000 98.0 51 18 157/77 98 ROOM AIR 02/01 1527 97.8 57 20 135/73 97 ROOM AIR 02/01 0846 97.6 64 20 111/60 97 02/01 0813 97.6 64 20 111/60 97 ROOM AIR Current Medications Patient Own Medication 1 UNIT DAILY PO Patient Own Medication 1 UNIT DAILY PO Patient Own Medication 1 UNIT QHS PO Patient Own Medication 1 UNIT BID PO Patient Own Medication 1 UNIT TID PO Patient Own Medication 1 UNIT QHS PO Patient Own Medication 1 UNIT QHS PO Tamsulosin HCl 0.4 MG QHS PO (DC) Patient Own Medication 1 UNIT QID PO Ertapenem 1 GM 1300 IV Sodium Chloride 50 ML Sodium Chloride 1,000 ML .STK-MED ONE IV (DC) Allopurinol 300 MG DAILY PO (DC) Aspirin 81 MG DAILY PO (DC) Carbidopa/Levodopa 1 TABLET TID PO (DC) Finasteride 5 MG DAILY PO (DC) Gabapentin 300 MG BID PO (DC) Levothyroxine Sodium 0.025 MG DAILY PO (DC) Polyethylene Glycol 17 GM DAILY PO Pramipexole Dihydrochloride 0.125 MG TID PO (DC) Sodium Chloride 10 ML PRN PRN IV Acetaminophen 650 MG Q4HP PRN PO Ondansetron HCl 4 MG Q6HP PRN IV Sodium Chloride 1,000 ML .[id number] IV Sodium Chloride 10 ML PRN PRN IV (DC) 02/01 1500 02/01 2300 02/02 0700 Intake Total 619 556 5031 Output Total 300 600 Balance 390 134 5820 Intake, IV 2116 Intake, Oral 480 480 Output, Urine 300 600 Last VS-Temp:98.0 B/P:168/86 Pulse:54 Resp:18 SaO2:96 ROOM AIR Last weight lbs:193 oz:5 K.686 Method:Bed Scales Exam General appearance: alert, active, no acute distress, well-developed, well- nourished Cardiovascular: regular rate & rhythm Respiratory: bibasilar crackles ABD: non-distended, soft, no tenderness, bowel sounds present Extremities: bilateral ankle edema Neuro: alert, disoriented, pleasantly disoriented Assessment/Plan Problem List 1. Weakness 2. Confusion 3. UTI (urinary tract infection) 4. Renal insufficiency 5. Alzheimer's disease Status: Chronic 6. BPH Status: Chronic Patient condition Improving Plan: continue current care, saline lock; repeat CXR; plan disposition; care management consult; urine culture is pending This inpt stay is expected to cross 2 MNs from start of care Yes at 0734
--- NOTE | 2017-02-02 07:35 | ACUTE CARE PROGRESS NOTE (QUA) ---
Progress Notes Subjective Date 02/02/17 Time 0726 Note Eating breakfast; denies pain and breathing is better; has been OOB; see PT note; voiding QS; no stools Objective Findings Laboratory Tests 02/01/17 0807: Sodium 142, Potassium 3.8, Chloride 105, Carbon Dioxide 31, BUN 32 H, Creatinine 1.6 H, Estimated Creat Clear 45 L, Estimated GFR (MDRD) 42, Glucose 134 H, Calcium 8.6, WBC 8.3, RBC 4.75, Hgb 14.1, Hct 44.6, MCV 94.0, RDW 14.2, Plt Count 169, MPV 8.6, Gran % 76.3, Gran # 6.3, Lymphocytes % 18.2, Monocytes % 3.3, Eosinophils % 1.6, Basophils % 0.5, Lymphocytes # 1.5, Monocytes # 0.3, Eosinophils # 0.1, Basophils # 0.0, PUBS MCHC 31.7 L, MCH 29.8 Vital Signs Date Time Temp Pulse Resp B/P Pulse O2 O2 Flow FiO2 Ox Delivery Rate 02/02 0344 98.0 54 18 168/86 96 ROOM AIR 02/01 2040 98.0 51 18 157/77 98 02/01 2000 98.0 51 18 157/77 98 ROOM AIR 02/01 1527 97.8 57 20 135/73 97 ROOM AIR 02/01 0846 97.6 64 20 111/60 97 02/01 0813 97.6 64 20 111/60 97 ROOM AIR Current Medications Patient Own Medication 1 UNIT DAILY PO Patient Own Medication 1 UNIT DAILY PO Patient Own Medication 1 UNIT QHS PO Patient Own Medication 1 UNIT BID PO Patient Own Medication 1 UNIT TID PO Patient Own Medication 1 UNIT QHS PO Patient Own Medication 1 UNIT QHS PO Tamsulosin HCl 0.4 MG QHS PO (DC) Patient Own Medication 1 UNIT QID PO Ertapenem 1 GM 1300 IV Sodium Chloride 50 ML Sodium Chloride 1,000 ML .STK-MED ONE IV (DC) Allopurinol 300 MG DAILY PO (DC) Aspirin 81 MG DAILY PO (DC) Carbidopa/Levodopa 1 TABLET TID PO (DC) Finasteride 5 MG DAILY PO (DC) Gabapentin 300 MG BID PO (DC) Levothyroxine Sodium 0.025 MG DAILY PO (DC) Polyethylene Glycol 17 GM DAILY PO Pramipexole Dihydrochloride 0.125 MG TID PO (DC) Sodium Chloride 10 ML PRN PRN IV Acetaminophen 650 MG Q4HP PRN PO Ondansetron HCl 4 MG Q6HP PRN IV Sodium Chloride 1,000 ML .[id number] IV Sodium Chloride 10 ML PRN PRN IV (DC) 02/01 1500 02/01 2300 02/02 0700 Intake Total 776 204 9026 Output Total 300 600 Balance 311 590 1690 Intake, IV 2116 Intake, Oral 480 480 Output, Urine 300 600 Last VS-Temp:98.0 B/P:168/86 Pulse:54 Resp:18 SaO2:96 ROOM AIR Last weight lbs:193 oz:5 K.686 Method:Bed Scales Exam General appearance: alert, active, no acute distress, well-developed, well- nourished Cardiovascular: regular rate & rhythm Respiratory: bibasilar crackles ABD: non-distended, soft, no tenderness, bowel sounds present Extremities: bilateral ankle edema Neuro: alert, disoriented, pleasantly disoriented Assessment/Plan Problem List 1. Weakness 2. Confusion 3. UTI (urinary tract infection) 4. Renal insufficiency 5. Alzheimer's disease Status: Chronic 6. BPH Status: Chronic Patient condition Improving Plan: continue current care, saline lock; repeat CXR; plan disposition; care management consult; urine culture is pending This inpt stay is expected to cross 2 MNs from start of care Yes at 0734
[2017-02-02 07:53] VITALS: BP 172/89
[2017-02-02 08:58] VITALS: BP 172/89
--- NOTE | 2017-02-02 09:32 | RADIOLOGY REPORT PS360 ---
CHEST(2 VIEWS-NOT PORTABLE) HISTORY: possible pneumonia ORDERING PHYSICIAN: Imelda March MD PATIENT AGE: 81 years COMPARISON: 01/31/2017 FINDINGS: The cardiomediastinal silhouette and pulmonary vascularity are within normal limits. Patchy density is noted in the right upper lobe overlying the third rib anteriorly consistent with a patchy area of pneumonia. Consider follow until clear. The remaining lungs are clear. No acute bony abnormalities. IMPRESSION: No change patchy infiltrate in the right upper lobe
[2017-02-02 16:00] VITALS: BP 155/74
[2017-02-02 20:07] VITALS: BP 152/76
[2017-02-02 20:30] VITALS: BP 152/76
[2017-02-03 04:00] VITALS: BP 136/77
[2017-02-03 07:25] VITALS: BP 155/66
--- NOTE | 2017-02-03 08:35 | ACUTE CARE PROGRESS NOTE (QUA) ---
Progress Notes Subjective Date 02/03/17 Time 0831 Note Patient states he would like to go home today. He has slight pain in his lower extremities. He ate some of his breakfast but did not rest well due to being in the hospital. He states he sleeps better at home. Objective Findings Last VS-Temp:97.7 B/P:155/66 Pulse:57 Resp:18 SaO2:95 ROOM AIR Last weight lbs:193 oz:5 K.686 Method:Bed Scales Exam General appearance: alert, awake, no acute distress Cardiovascular: regular rate & rhythm Respiratory: faint basilar rales ABD: non-distended, normal bowel sounds, no rebound, soft, no tenderness, no guarding Extremities: trace pretibial edema bilaterally Reviewed: CXR - patchy infiltrate in RUL Urine cx - positive for enterococcus Assessment/Plan Problem List 1. Enterococcus UTI 2. Pneumonia 3. Weakness 4. Confusion 5. Renal insufficiency 6. Alzheimer's disease Status: Chronic 7. BPH Status: Chronic Plan: patient's blood pressure is stable. His chest x-ray did show RIGHT upper lobe pneumonia. He has an enterococcus urinary tract infection as well . He can possibly be discharged today on oral antibiotics to cover his pneumonia and his urinary tract infection. This inpt stay is expected to cross 2 MNs from start of care No at 0865
[2017-02-03 08:59] VITALS: BP 155/66
[2017-02-03] MEDS ORDERED: CEFDINIR300 M1 PO (10:23)
[2017-02-03 13:00] VITALS: BP 155/66
--- NOTE | 2017-02-07 16:02 | DISCHARGE SUMMARY STANDARD ---
Discharge Summary ([facility]) Date of admission: 01/31/17 Date of discharge: 02/03/17 Problem List: 1. Enterococcus UTI 2. Pneumonia 3. Weakness 4. Confusion 5. Renal insufficiency 6. Alzheimer's disease 7. BPH History of present illness: Mr Knox is an 81 year old male with a history of Alzheimers and BPH who was brought to [facility] ER via ambulance for evaluation. Patient lives at home with his . He walks with a walker and at baseline has dementia. His family noted declining in his mental status. He was in bed all day with altered mental status the day prior to admission. He did not complain of pain to his except for some chronic low back pain which she stated was unchanged. On admission the patient did not contribute to history. Family stated his blood pressure had been dropping at times. He had had a little bit of cough but otherwise no nausea, vomiting or diarrhea or other complaints. With evaluation in the ER, a CT of the head showed nothing acute. Chest X-ray showed a possible infiltrate. He was felt to have a UTI and was admitted for further evaluation and treatment. To note: the Home Health nurse called [facility] on 01/28/17 and described the intermittent low BP and patient's weakness. Family was unable to bring him to the office at [facility] for evaluation. Patient was started on florinef and family was instructed to have him brought to the ER if condition warrented. Exam on admission: General appearance: alert, active, no acute distress, eating breakfast Eyes: anicteric, pupils reactive to light ENT: mucous membranes moist Neck: no carotid bruit, full range of motion, lymphadenopathy (absent), thyroid (normal) Cardiovascular: regular rate & rhythm Respiratory: clear to auscultation (bilat anterior and posterior) ABD: non-distended, soft, no tenderness, no guarding, bowel sounds present Extremities: bilateral ankle edema Neuro: alert, disoriented Hospital Course: The patient was started on IVF and abx. Physical therapy was ordered as well. His BP was low at home and this was felt to be orthostatic. It was stable while in the hospital. The patient worked with PT and was able to get up and OOB. It was felt he would need to go to a SNF for rehab. A repeat CXR showed no change in the RUL infiltrate. He did not provide a sputum specimen, however his urine cx was positive for enterococcus. He did well throughout his stay. He wanted to return home and was stable to be discharged home on 02/03/17 on abx for his pneumonia and UTI. He will continue with home health and f/u with Dr. March. Discharge medications: Stop taking the following medications: Fludrocortisone Acetate (Fludrocortisone Acetate) 0.1 MG TABLET ORAL AT BEDTIME NIGHTLY Continue taking these medications: Allopurinol (Allopurinol) 300 MG TABLET 300 MILLIGRAM ORAL DAILY CHOLECALCIFEROL (VITAMIN D3) (Vitamin D-3) 2,000 UNIT CAPSULE 2,000 INTER.UNIT ORAL DAILY Gabapentin (Gabapentin) 300 MG CAPSULE 300 MILLIGRAM ORAL TWICE A DAY Pramipexole Di-HCl (Mirapex) 0.125 MG TABLET 0.125 MILLIGRAM ORAL THREE TIMES A DAY Qty = 90 Carbidopa/Levodopa (Carbidopa-Levodopa 25-100 Tab) 1 EACH TABLET 1 TABLET ORAL FOUR TIMES A DAY Qty = 120 LEVOCETIRIZINE DIHYDROCHLORIDE (Levocetirizine Dihydrochloride) 5 MG TABLET 5 MILLIGRAM ORAL DAILY Furosemide (Lasix 20MG) 20 MG TABLET 20 MILLIGRAM ORAL DAILY as needed for FLUID MEMANTINE HCL/DONEPEZIL HCL (Namzaric 28 MG-10 MG Capsule) 1 EACH CAP.SPR.24 1 CAPSULE ORAL AT BEDTIME NIGHTLY TAMSULOSIN HCL (Tamsulosin 0.4MG) 0.4 MG CAP.ER.24H 0.4 MILLIGRAM ORAL AT BEDTIME NIGHTLY ASPIRIN (Aspirin) 81 MG TAB.CHEW 81 MILLIGRAM ORAL AT BEDTIME NIGHTLY Levothyroxine Sodium (Levothyroxine 0.025MG) 25 MCG TABLET 0.025 MILLIGRAM ORAL DAILY Prednisone (Prednisone 5MG) 5 MG TABLET 10 MILLIGRAM ORAL DAILY POLYETHYLENE GLYCOL (Miralax) 17 GM POWD.PACK 17 GRAM ORAL DAILY Start taking the following new medications: Cefdinir (Cefdinir) 300 MG CAPSULE 300 MILLIGRAM ORAL TWICE A DAY Qty = 20 No Refills Disposition: F/U with: Imelda March MD Follow up: 7 DAYS Comments, Specifics r/t O2, Equipment, Antibiotics, etc: He already is seen by Home Health Activity: Cont Current activity Diet: Continue same diet Discharge to: HOME Agency needed? Y Specify: HOME HEALTH at 1601
== END 2017-02-03 13:05 | disposition home health service (06) ==
LOC: ER 19:08 → 2ND 21:15 → ER 21:15 → 2ND 22:52
PROVIDERS: Emergency Medicine
DX: N39.0 Urinary tract infection, site not specified (principal); B95.2 Enterococcus as the cause of diseases classified elsewhere; J18.9 Pneumonia, unspecified organism; N28.9 Disorder of kidney and ureter, unspecified; R41.0 Disorientation, unspecified; G30.9 Alzheimer's disease, unspecified; F02.80 Dementia in other diseases classified elsewhere, unspecified severity, without behavioral disturbance, psychotic disturbance, mood disturbance, and anxiety; G20 Parkinson's disease; E07.9 Disorder of thyroid, unspecified; N40.0 Benign prostatic hyperplasia without lower urinary tract symptoms; I95.9 Hypotension, unspecified; I95.1 Orthostatic hypotension; Z79.52 Long term (current) use of systemic steroids; I25.2 Old myocardial infarction; Z83.3 Family history of diabetes mellitus; Z80.9 Family history of malignant neoplasm, unspecified; Z88.3 Allergy status to other anti-infective agents; Z88.0 Allergy status to penicillin; Z88.2 Allergy status to sulfonamides; Z79.82 Long term (current) use of aspirin; Z79.899 Other long term (current) drug therapy; Z87.891 Personal history of nicotine dependence
CPT/HCPCS: G8978; G8979; G8980; G0378; J1335; J2405

== ENCOUNTER 2017-03-04 18:04 | Emergency (ER) | payer MEDICARE, OTHER ==
[~2017-03-04] VITALS: Ht 182.9 cm; Wt 93.4 kg
[~2017-03-04 18:04] MED LIST changes: +ALLOPURINOL300 MG PO; +ASPIRIN 81MG TA81 MG PO; +CEFDINIR300 M1 PO; +FINASTERIDE5 MG PO; +FLUDROCORTISON0.1 M1 PO; +GABAPENTIN100 M1 PO; +LASIX 20MG. TAB20 MG PO; +MIRALAX(PO17 GM/1 PA PO; +PREDNISONE 5MG.5 MG PO; +TAMSULOSIN HYD0.4 MG PO; +VITAMIN D31000 IU PO
--- NOTE | 2017-03-04 18:23 | Emergency Room Report ---
History of Present Illness Time Seen by 181 Presenting Problem in Triage Pt arrived: Presenting Problem: Onset of symptoms date/time:/ or onset unknown for: Treatment Prior to Arrival: DENTAL TREATMENT COORDINATOR Provided by: Sepsis Risk Assessment: Temp: B/P: MAP: Pulse: Resp: Recent fever? Clinical Suspician of Infection? Mental Status: Sepsis Risk: Have you (or family members/close friends) recently traveled outside the [place]? If Yes, where/when: Have you had exposure to infectious disease within the past month? TB? Other? Specify: Fell, neg LOC; brought by EMS with c/o right forearm skin tears. Pt family not yet at bedside. He appears to have some mild dementia. He has some '"groin pain ". ALLERGIES Coded Allergies: Penicillins (10/14/16) sulfamethoxazole (From BACTRIM) (10/14/16) trimethoprim (From BACTRIM) (10/14/16) Home Medications Active Scripts Pramipexole Di-HCl (Mirapex) 0.125 MG PO TID #90 TAB Ref 5 Prov: 10/19/16 Carbidopa/Levodopa (Carbidopa-Levodopa 25-100 Tab) 1 TAB PO QID #120 TAB Ref 4 Prov: 10/19/16 Cefdinir 300 MG PO BID #20 CAP Prov: 02/03/17 Reported Medications Furosemide (Lasix 20MG) 20 MG PO DAILY PRN FLUID MEMANTINE HCL/DONEPEZIL HCL (Namzaric 28 MG-10 MG Capsule) 1 CAP PO QHS ASPIRIN (Aspirin) 81 MG PO QHS Prednisone (Prednisone 5MG) 10 MG PO DAILY POLYETHYLENE GLYCOL (Miralax) 17 GM PO DAILY Allopurinol 300 MG PO DAILY CHOLECALCIFEROL (VITAMIN D3) (Vitamin D-3) 2,000 IU PO DAILY Gabapentin 300 MG PO BID LEVOCETIRIZINE DIHYDROCHLORIDE (Levocetirizine Dihydrochloride) 5 MG PO DAILY TAMSULOSIN HCL (Tamsulosin 0.4MG) 0.4 MG PO QHS Levothyroxine Sodium (Levothyroxine 0.025MG) 0.025 MG PO DAILY History Medical History General CAD? No Angina: No ID: Yes Hypertension? No Hyperlipidemia? Yes CHF? No DVT? No PE? No COPD? No Asthma? No Anemia? No GERD? Yes Gastric ulcers? Yes GI Bleed? No Hernia? No Thyroid Problems? Yes Hypothyroidism? No CVA? No Seizures? No Diabetes? No End Stage Renal Disease? No UTI? No Stones? No BPH? Yes GB Disease: No Nephritic Syndrome? No Asplenia? No Hepatitis? No Sickle Cell Disease? No Arthritis? No Migraines? No Cataracts? No Glaucoma? No MRSA? No HIV? No TB? No Anxiety? No Depression? No Cancer? No More? Yes Additional hx: [place] [employer] Immunization Hx DT/Tetanus Unknown Flu 2017-18FSN Pneumonia Received In Past Surgical Hx Previous Surgery?N Family History Family Hx Diabetes Yes CAD Yes Hypertension Yes Hyperlipidemia Yes Cancer Yes TB No Social History Smoking Hx Packs/day N/A Alcohol Alcohol: No Review of Systems All Other Systems Reviewed and Negative Musculoskeletal see HPI Skin see HPI Physical Exam Vital Signs Vital Signs Date Time Temp Pulse Resp B/P Pulse O2 O2 Flow FiO2 Ox Delivery Rate 03/04 1813 98.1 67 18 98 General Appearance normal appearance, WD/WN, no apparent distress Eye Exam - bilateral eye normal exam, bilateral eye PERRL, bilateral eye EOMI Neck normal inspection, non-tender, supple, full range of motion Respiratory Status Yes: trachea midline, chest symmetrical, non tender chest. No: respiratory distress, tender on palpation, use of accessory muscles, pain on inspiration, pain on expiration, productive cough, non productive cough. Lung Sounds bilateral: normal breath sounds, lungs clear. Cardiovascular normal exam, regular rate/rhythm, no peripheral edema, no gallop, no JVD, no murmur, no rub, normal peripheral pulses Gastrointestinal normal bowel sounds, normal exam, non tender, soft, no organomegaly, no guarding, no rebound Back normal inspection, no vertebral tenderness, bowel/bladder continent, strt leg raising(L)-NML, strt leg raising(R)-NML Extremities normal range of motion, minor skin tears x two, about three cm each, to right forearm, with diffuse violaceous ecchymosis but no declan point tenderness, crepitus, deformities, or stepoffs noted. FROM all extremities; pelvis stable to AP and lateral palpation. Strength 4 Upper Ext (L), 4 Upper Ext (R), 4 Lower Ext (L), 4 Lower Ext (R) Neurologic alert, normal exam, speech clear and fluent; very stiff motor exam, somewhat rigid legs bilaterally. Overall nonfocal exam. Patient has inconsistent hpi and suspect some baseline dementia. Glascow Coma Scale Glascow Coma Scale Response Value EYE response: 4 Spontaneously 4 MOTOR response: 6 OBEYS 6 VERBAL response: 5 Oriented & Converses 5 Total 15 Skin intact (skin tears as per above) Medical Decision Making LABS/Meds/Orders Pt receiving controlled substance in ED? No Results/Orders Current Medication Orders Sig/Lu Start time Last Medication Dose Route Stop Time Status Admin Diphtheria/Pertussis/ 0 .STK-MED ONE 03/04 1844 DC Tetanus Vacc IM Diphtheria/Pertussis/ 0.5 ML ONCE ONE 03/04 1830 DC 03/04 Tetanus Vacc IM 03/04 1831 184 Orders Procedure Date/time Status CT SCAN REQUEST 03/04 1818 Complete PELVIS AP ONLY 03/04 1818 Active FOREARM-RT 03/[address] CERVICAL SPINE W/O CONT. 03/04 UNK Active XRAY/CT/US XRAY/CT/US XRAY forearm, pelvis XR interpretation by reviewed by me Xray Results normal/NAD, no fracture seen CT C-spine CT interpretation by reviewed by me ([facility] report reviewed) Time results known: 1956 CT Results no fracture seen Procedures Laceration/Wound Repair Laceration/Wound Repair Risks/benefits discussed with pt/guardian? Yes Tetanus status not up to date (updated today) Wound Location forearm Wound Length (cm) 6 Wound's Depth, Shape superficial Wound Explored clean Wound Prep Hibiclens Wound Debrided none Wound Repaired With Dermabond Layer Closure No Sterile Dressing Applied Yes (skin tears closed w/ dermabond) Departure Departure Time of Disposition 1956 Disposition Still a Patient Clinical Impression Primary Impression: Skin tear of right forearm without complication Qualifiers: Encounter type: initial encounter Qualified Code: S51.811A - Laceration without foreign body of right forearm, initial encounter Secondary Impressions: Contusion of right forearm Qualifiers: Encounter type: initial encounter Qualified Code: S50.11XA - Contusion of right forearm, initial encounter Fall Qualifiers: Encounter type: initial encounter Qualified Code: W19.XXXA - Unspecified fall, initial encounter Condition STABLE Referrals Imelda March MD (Family) Patient Instructions DI for Abrasion Additional Instructions Tylenol as needed, see Dr. March as needed. Discharge Counseling Counseled pt/family regarding diagnosis, test results, medications/RX, home care, follow up needs ED Critical Care Critical Care No at 1950
--- OUTSIDE RECORDS SUMMARY | 2017-03-04 18:23 | External Medical Summary Rpt | CCD ---
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, UNSPECIFIED N30.91 CYSTITIS, UNSPECIFIED WITH HEMATURIA N39.0 URINARY TRACT INFECTION, SITE NOT SPECIFIED R41.0 DISORIENTAT ION, UNSPECIFIED R53.1 WEAKNESS S02.2XXB FRACTURE OF NASAL BONES, INITIAL ENCOUNTER FOR OPEN FRACTURE S22.31XA FRACTURE OF ONE RIB, RIGHT SIDE, INIT FOR CLOS FX Allergies, Adverse Reactions, Alerts Type Drug Allergy [...] Order Detail nces retati t Range on Gram negative automated antibiotic susceptibility test (02-03-2017 06:34) Ampicil <= 2 complet sowmya 017 ug/ml ed suscept 06:34 ibility test by minimum inhibit ory concent ration Vancomy 11-02-2 = 1 complet willard 017 ug/ml ed suscept 06:34 ibility test by minimum inhibit ory concent ration Tetracy 2 >= 16 complet roblero 017 ug/ml ed suscept 06:34 ibility test by minimum inhibit ory concent ration Penicil 2 = 4 complet sowmya G 017 ug/ml ed suscept 06:34 ibility test by minimum inhibit ory concent ration Levoflo 2 = 1 complet xacin 017 ug/ml ed suscept 06:34 ibility test by minimum inhibit ory concent ration Nitrofu 2 <= 16 complet rantoin 017 ug/ml ed 06:34 suscept ibility test by minimum inhibit ory concent ration Basic metabolic panel (02-01-2017 08:07) Comment: SAMPLES DRAWN LATE DUE TO VOLUNTEER RECRUITMENT COORDINATOR BREAK DOWNS Serum 02-01-2 = 142 136-145 complet sodium 017 mmoL/L ed measure 08:07 ment Serum 2 = 3.8 3.5-5.1 complet potassi 017 mmoL/L ed um 08:07 measure ment Serum 2 = 134 74-106 complet or 017 mg/dL ed plasma 08:07 glucose measure ment (mas Estimat 2 = 42 >60 complet ed 017 ML/MIN ed glomeru 08:07 lar filtrat ion rate (GF Comment: REFERENCE RANGE: >60 ML/MIN/1.73 SQUARE METERS Comment: If this patient is -[place], then multiply the Comment: result by 1.210. Estimat 2 = 45 50-200 complet ion of 017 ML/MIN ed creatin 08:07 ine renal clearan ce Serum 2 = 1.6 0.70-1. complet or 017 mg/dL 30 ed plasma 08:07 creatin ine measure ment ( Carbon 02-01-2 = 31 21.0-32 complet dioxide 017 mmoL/L .0 ed 08:07 measure ment Serum 02-01-2 = 105 98-107 complet or 017 mmoL/L ed plasma 08:07 chlorid e measure ment (mo Serum 02-01-2 = 8.6 8.5-10. complet or 017 mg/dL 1 ed plasma 08:07 calcium measure ment (mas Serum 02-01-2 = 32 7-18 complet or 017 mg/dL ed plasma 08:07 urea nitroge n measure men CBC w auto diff (02-01-2017 08:07) Comment: SAMPLES DRAWN LATE DUE TO VOLUNTEER RECRUITMENT COORDINATOR BREAK DOWNS Lymphoc = 18.2 10-50 complet yte 017 % ed count, 08:07 blood, automat ed Absolut = 1.5 0.7-4.5 complet e 017 K/mm3 ed lymphoc 08:07 yte count Blood = 14.1 14.1-18 complet hemoglo 017 g/dL .0 ed bin 08:07 measure ment (mass/v olum Automat = 0.0 0-0.2 complet ed 017 K/MM3 ed blood 08:07 basophi l count (count/ vo Blood = 44.6 42.0-52 complet hematoc 017 % .0 ed rit 08:07 (volume fractio n) Granulo = 76.3 37.0-80 complet cyte 017 % .0 ed percent 08:07 age Blood = 6.3 1.3-8.0 complet granulo 017 K/mm3 ed cytes 08:07 automat ed count (numb Automat = 1.6 % 0.1-12. complet ed 017 0 ed blood 08:07 eosinop hils/10 0 leukocy t Automat = 0.1 0.0-0.4 complet ed 017 K/mm3 ed blood 08:07 eosinop hil count Baso % = 0.5 % 0.1-2.0 complet 017 ed 08:07 Blood = 8.3 4.8-10. complet leukocy 017 K/MM3 8 ed casie 08:07 count (number /volume ) Automat = 14.2 11.5-17 complet ed 017 % .5 ed erythro 08:07 cyte distrib ution width Red = 4.75 4.6-6.2 complet blood 017 M/mm3 ed cell 08:07 count Blood = 169 142-424 complet platele 017 K/mm3 ed t count 08:07 Automat 10-31-2 = 8.6 7.4-10. complet ed 017 fl 4 ed blood 08:07 platele t mean volume jono [place] % = 3.3 % 1.7-9.3 complet 017 ed 08:07 Absolut = 0.3 0.1-1.0 complet e 017 K/mm3 ed monocyt 08:07 e count Automat = 94.0 82.2-97 complet ed 017 fl .8 ed erythro 08:07 cyte mean corpusc ular v Automat = 31.7 31.8-35 complet ed 017 g/dl .4 ed erythro 08:07 cyte mean corpusc ular h Mean = 29.8 27-31.2 complet corpusc 017 pg ed ular 08:07 hemoglo bin ([facility]) determ Urine culture (01-31-2017 19:59) Urine [id number] complet culture 017 2 ed 19:59 Enteroc occus faecali s SCT ECFA ENTEROC OCCUS FAECALI S L Urinalysis dipstick W Reflex Microscopic panel in [...] 013 gm/dL ed SerPl-m 14:09 Cnc Globuli 2 3.8 1.3-3.2 complet n 013 gm/dL ed Ser-mCn 14:09 c Albumin 2 1.1 UNK 1.1-1.8 complet /Glob 013 ed SerPl-m 14:09 Rto Bilirub 2 0.4 0.2-1.0 complet 013 mg/dL ed SerPl-m 14:09 Cnc AST 19 U/L 15-37 complet SerPl-c 013 ed Cnc 14:09 ALT 35 U/L 30-65 complet SerPl-c 013 ed Cnc 14:09 ALP 110 U/L 50-136 complet SerPl-c 013 ed Cnc 14:09 CK SerPl-cCnc (11-27-2012 14:09) CK 93 U/L 39-308 complet SerPl-c 013 ed Cnc 14:09 CK MB SerPl-mCnc (11-27-2012 14:09) CK MB 2 1.3 0.0-3.6 complet SerPl-m 013 ng/mL ed Cnc 14:09 TROPONIN I (11-27-2012 14:09) TROPONI 0.02 0.00-0. complet N I 013 ng/mL 06 ed 14:09 CBC with AUTO DIFF (11-27-2012 14:09) WBC # 11-27-2 6.3 4.8-10. complet Bld 013 K/MM3 8 ed Auto 14:09 RBC # 11-27-2 5.16 4.6-6.2 complet Bld 013 M/mm3 ed Auto 14:09 Hgb 12.7 14.1-18 complet Bld-mCn 013 g/dL .0 ed c 14:09 Hct Fr 39.8 % 42.0-52 complet Bld 013 .0 ed 14:09 MCV RBC 11-27- 77.2 fl 82.2-97 complet 013 .8 ed 14:09 [facility] RBC 11-27- 24.6 pg 27-31.2 complet Qn 013 ed Auto 14:09 MEAN 31.9 31.8-35 complet CORPUSC 013 g/dl .4 ed ULAR 14:09 HGB CONC RDW RBC 18.6 % 11.5-17 complet Auto 013 .5 ed 14:09 Platele 11-27- 222 142-424 complet t Bld 013 K/mm3 ed Ql 14:09 Manual MEAN 8.0 fl 7.4-10. complet PLATELE 013 4 ed T 14:09 VOLUME Granulo 2 61.4 % 37.0-80 complet cytes 013 .0 ed Fr Bld 14:09 Auto LYMPH % 11-27-2 29.0 % 10-50 complet 013 ed 14:09 Monocyt 11-27-2 6.3 % 1.7-9.3 complet es Fr 013 ed Bld 14:09 Auto Eosinop 11-27-2 2.3 % 0.1-12. complet hil Fr 013 0 ed Bld 14:09 Auto Basophi 11-27-2 0.9 % 0.1-2.0 complet ls Fr 013 ed Bld 14:09 Auto Granulo 11-27-2 3.9 1.3-8.0 complet cytes # 013 K/mm3 ed Bld 14:09 Auto Lymphoc 11-27-2 1.8 0.7-4.5 complet ytes Fr 013 K/mm3 ed Bld 14:09 Auto Monocyt 11-27-2 0.4 0.1-1.0 complet es # 013 K/mm3 ed Bld 14:09 Auto Eosinop 11-27-2 0.1 0.0-0.4 complet hil # 013 K/mm3 ed Bld 14:09 Auto Basophi 11-27-2 0.1 0-0.2 complet ls # 013 K/MM3 ed Bld 14:09 Auto Encounters Encounter Start End Date Code Location Performer Type Date Emergency NA [facility] (ER) 3 14:02 3 17:06 [facility] KATHYA
--- OUTSIDE RECORDS SUMMARY | 2017-03-04 18:23 | External Medical Summary Rpt | CCD ---
Author Author , HOWARD Organization HOWARD Address Unknown Phone [email or web address] Care Team Providers Care State Patrol Officer Name Role Phone Preeti MCKENZIE, Unavailable Unavailable Preeti MCKENZIE Purpose Continuity of Care Document - 11-27-2012 through 2016 Problems Code Diagnosis DOS Provider Status [id number] Alzheimer's [facility] 786.50 [id number] Chronic [facility] E86.0 DEHYDRATION I45.2 BIFASCICULA R BLOCK [...] 08:07) Comment: SAMPLES DRAWN LATE DUE TO TAMPING MACHINE OPERATOR ROAD FORMS BREAK DOWNS Serum 02-01-2 = 142 136-145 [...] SQUARE METERS Comment: If this patient is -Micronesian, then multiply the Comment: result by 1.210. [...] 08:07) Comment: SAMPLES DRAWN LATE DUE TO TAMPING MACHINE OPERATOR ROAD FORMS BREAK DOWNS Lymphoc = 18.2 10-50 complet [...] blood 08:07 platele t mean volume jono [place] % = 3.3 % 1.7-9.3 complet 017 [...] ([facility]) determ Urine culture (01-31-2017 19:59) Urine [id number] complet culture 017 2 ed 19:59 Enteroc [...] NA [facility] (ER) 3 14:02 3 17:06 [facility] KATHYA
--- OUTSIDE RECORDS SUMMARY | 2017-03-04 18:23 | External Medical Summary Rpt | CCD ---
Demographics Preferred Language Swedish Marital Status Unknown Druze Affiliation Unknown Race Unknown Ethnic Group Unknown Author Author , HOWARD LAWRENCE Address Unknown Phone Immunization No patient found.
--- OUTSIDE RECORDS SUMMARY | 2017-03-04 18:23 | External Medical Summary Rpt | CCD ---
Demographics Preferred Language Czech Marital Status Unknown Buddhist Affiliation Unknown Race Unknown Ethnic Group Unknown Author Author , HOWARD LAWRENCE Address Unknown Phone Immunization No patient found.
--- OUTSIDE RECORDS SUMMARY | 2017-03-04 18:24 | External Medical Summary Rpt ---
Author Author [employer], DARVININA Production Organization [employer] Address Unknown Phone Unavailable Results Basic metabolic panel in Blood Observa Value Referen Units Interpr Notes Date tion ce etation Range SAMPLES DRAWN LATE DUE TO SYSTEMS ENGINEER BREAK DOWNS Urea 7 - 18 mg/dL High No Feb 01 nitrogen informati 2017 8:07 [Mass/vol on in AM ume] in source Serum or data Plasma Calcium 8.5 - mg/dL Normal No Feb 01 [Mass/vol 10.1 informati 2017 8:07 ume] in on in AM Serum or source Plasma data Chloride 98 - 107 mmoL/L Normal No Feb 01 [Moles/vo informati 2016 8:07 lume] in on in AM Serum or source Plasma data Carbon 21.0 - mmoL/L Normal No Feb 01 dioxide, 32.0 informati 2017 8:07 total on in AM [Moles/vo source lume] in data Serum or Plasma Creatinin 0.70 - mg/dL High No Feb 01 e 1.30 informati 2017 8:07 [Mass/vol on in AM ume] in source Serum or data Plasma Creatinin 50 - 200 ML/MIN Low No Oct 31 e renal informati 2017 8:07 clearance on in AM source predicted data by Cockcroft -Gault formula Estimated >60 ML/MIN No REFERENCE Feb 01 informati RANGE: 2017 8:07 glomerula on in >60 AM r source ML/MIN/1. filtratio data 73 SQUARE n rate METERSIf (GF this patient is -A merican, then multiply theresult by 1.210. Glucose 74 - 106 mg/dL High No Feb 01 [Mass/vol informati 2016 8:07 ume] in on in AM Serum or source Plasma data Potassium 3.5 - 5.1 mmoL/L Normal No Feb 01 informati 2017 8:07 [Moles/vo on in AM lume] in source Serum or data Plasma Sodium 136 - 145 mmoL/L Normal No Feb 01 [Moles/vo informati 2016 8:07 lume] in on in AM Serum or source Plasma data CBC W Auto Differential panel in Blood Observa Value Referen Units Interpr Notes Date tion ce etation Range SAMPLES DRAWN LATE DUE TO SYSTEMS ENGINEER BREAK DOWNS Basophils 0 - 0.2 K/MM3 Normal No Feb 01 informati 2016 8:07 [#/volume on in AM ] in source Blood by data Automated count Basophils 0.1 - 2.0 % Normal No Feb 01 /100 informati 2016 8:07 leukocyte on in AM s in source Blood by data Automated count Eosinophi 0.0 - 0.4 K/mm3 Normal No Feb 01 ls informati 2016 8:07 [#/volume on in AM ] in source Blood by data Automated count Eosinophi 0.1 - % Normal No Feb 01 ls/100 12.0 informati 2016 8:07 leukocyte on in AM s in source Blood by data Automated count Granulocy 1.3 - 8.0 K/mm3 Normal No Feb 01 casie informati 2016 8:07 [#/volume on in AM ] in source Blood by data Automated count Granulocy 37.0 - % Normal No Feb 01 casie/100 80.0 informati 2016 8:07 leukocyte on in AM s in source Blood by data Automated count Hematocri 42.0 - % Normal No Feb 01 t [Volume 52.0 informati 2016 8:07 on in AM Fraction] source of Blood data Hemoglobi 14.1 - g/dL Normal No Feb 01 n 18.0 informati 2016 8:07 [Mass/vol on in AM ume] in source Blood data Lymphocyt 0.7 - 4.5 K/mm3 Normal No Feb 01 es informati 2016 8:07 [#/volume on in AM ] in source Unspecifi data ed specimen by Automated count Lymphocyt 10 - 50 % Normal No Feb 01 es informati 2016 8:07 [#/volume on in AM ] in source Unspecifi data ed specimen by Automated count Erythrocy 27 - 31.2 pg Normal No Feb 01 te mean informati 2016 8:07 corpuscul on in AM ar source hemoglobi data n [Entitic mass] Erythrocy 31.8 - g/dl Low No Feb 01 te mean 35.4 informati 2016 8:07 corpuscul on in AM ar source hemoglobi data n concentra tion [Mass/vol ume] by Automated count Erythrocy 82.2 - fl Normal No Feb 01 te mean 97.8 informati 2016 8:07 corpuscul on in AM ar volume source [Entitic data volume] by Automated count Monocytes 0.1 - 1.0 K/mm3 Normal No Feb 01 informati 2016 8:07 [#/volume on in AM ] in source Blood by data Automated count Monocytes 1.7 - 9.3 % Normal No Feb 01 /100 informati 2016 8:07 leukocyte on in AM s in source Blood by data Automated count Platelet 7.4 - fl Normal No Feb 01 mean 10.4 informati 2016 8:07 volume on in AM [Entitic source volume] data in Blood by Automated count Platelets 142 - 424 K/mm3 Normal No Feb 01 informati 2016 8:07 [#/volume on in AM ] in source Blood data Erythrocy 4.6 - 6.2 M/mm3 Normal No Feb 01 casie informati 2016 8:07 [#/volume on in AM ] in source Amniotic data fluid Erythrocy 11.5 - % Normal No Feb 01 te 17.5 informati 2016 8:07 distribut on in AM ion width source [Entitic data volume] by Automated count Leukocyte 4.8 - K/MM3 Normal No Feb 01 s 10.8 informati 2016 8:07 [#/volume on in AM ] in source Blood data Urinalysis dipstick W Reflex Microscopic panel [...] No Jan 31 [Mass/vol informati informati informati 2017 7:59 ume] in on in on in [...] Normal No Jan 31 Urine informati informati 2017 7:59 on in on in PM source source data data Protein NEG mg/dL No No Jan 31 [Mass/vol informati informati 2017 7:59 ume] in on in on in PM Urine by source source Automated data data test strip Erythro OCC 0 rbc/hpf No No Jan 31 cytes informa informa 2016 [Presen tion in tion in 7:59 PM ce] in source source Urine data data sedimen t by Light microsc opy Specific 1.005 - No Normal No Jan 31 gravity 1.030 informati informati 2017 7:59 of Urine on in on in PM source source data data Epithel OCC OCC #/hpf No No Jan 31 ial informa informa 2017 cells.s tion in tion in 7:59 PM [...] Normal No Jan 31 Urine informati informati 2017 7:59 on in on in PM source source data data Protein NEG mg/dL No No Oct 30 [Mass/vol informati informati 2017 7:59 ume] in on in on in PM Urine by source source Automated data data test strip Specific 1.005 - No Normal No Jan 31 gravity 1.030 informati informati 2016 7:59 of Urine on in on in PM source source data data Urobili 0.2 NEG E.U./dL No No Jan 31 nogen informa informa 2017 [Presen tion in tion in 7:59 PM ce] in source source Urine data data by Test strip Thyroxine (T4) [Mass/volume] in Serum or Plasma Observa Value Referen Units Interpr Notes Date tion ce etation Range Thyroxine 4.7 - ug/dl Normal No Jan 31 (T4) 13.3 informati 2016 7:30 [Mass/vol on in PM ume] in source Serum or data Plasma Thyrotropin [Units/volume] in Serum or Plasma Observa Value Referen Units Interpr Notes Date tion ce etation Range Thyrotrop 0.358 - uIU/ml Normal No Jan 31 in 3.740 informati 2016 7:30 [Units/vo on in PM lume] in source Serum or data Plasma CBC W Auto Differential panel in Blood [...] % Normal No Jan 31 /100 informati 2017 7:30 leukocyte on in PM s in source Blood by data Automated count Platelet 7.4 - fl Normal No Jan 31 mean 10.4 informati 2016 7:30 volume on in PM [Entitic source volume] data in Blood by Automated count Platelets 142 - 424 K/mm3 Normal No Jan 31 informati 2016 7:30 [#/volume on in PM ] in source Blood data Erythrocy 4.6 - 6.2 M/mm3 Normal No Jan 31 casie informati 2016 [...] Observa Value Referen Units Interpr Notes Date ti ce etation Range LYMPH 10 10 - 50 % Normal No Jan 31 inform2016 tion in 7:30 PM source data Monocytes 2 - 9 % Normal No Jan 31 /100 informati 2017 7:30 leukocyte on in PM s in source Blood by data Automated count Platele NORMAL No No No No Jan 31 ts informa informa informa informa 2016 [Presen tion in tion in tion in tion in 7:30 PM ce] in source source source source Blood data data data data by Light microsc opy Neutrophi 42 - 76 % High No Jan 31 ls informati 2016 7:30 [#/volume on in PM ] in source Blood by data Automated count Cells No #CELLS No No Jan 31 Counted informati informati informati 2016 7:30 Total [#] on in on in on in PM in Blood source source source data data data Natriutietic peptide B [Mass/volume] in Serum or Plasma Observa Value Referen Units Interpr Notes etation Range Natriutie 0 - 100 pg/mL Normal No Jan 31 tic informati 2016 7:30 peptide B on in PM source [Mass/vol data ume] in Serum or Plasma Troponin I.cardiac [Mass/volume] in Serum or Plasma Observa Value Referen Units Interpr Notes ce etation Range Troponin 0.00 - ng/mL Normal No Jan 31 I.cardiac 0.06 informati 2016 7:30 on in PM [Mass/vol source ume] in data Serum or Plasma Lactate [Moles/volume] in Blood Observa Value Referen Units Interpr Notes ce etation Range Lactate 0.4 - 2.0 mmol/L Normal No Jan 31 [Moles/vo informati 2016 7:30 lume] in on in PM Blood source data Comprehensive metabolic 2000 panel in Serum or Plasma Observa Value Referen Units Interpr Notes Date ce etation Range Albumin/G 1.1 - 1.8 [...] U/L Normal No Jan 31 phosphata informati 2017 7:30 se on in PM [Enzymati source c data activity/ volume] in Serum or Plasma Bilirubin 0.2 - 1.0 mg/dL Normal No Jan 31 .total informati 2017 7:30 [Mass/vol on in PM ume] in source Serum or data Plasma Urea 7 - 18 mg/dL High No Jan 31 nitrogen informati 2017 7:30 [Mass/vol on in PM [...] High No Jan 31 e 1.30 informati 2016 7:30 [Mass/vol on in PM ume] in source Serum or data Plasma Creatinin 50 - 200 ML/MIN Low No Jan 31 e renal informati 2016 7:30 clearance on in PM source predicted data by Cockcroft -Gault formula Estimated >60 ML/MIN No REFERENCE Jan 31 informati RANGE: 2017 7:30 glomerula on in >60 PM r source ML/MIN/1. filtratio data 73 SQUARE n rate METERSIf (GF this patient is -A merican, then multiply theresult by 1.210. Globulin 1.3 - 3.2 gm/dL High No Jan 31 [Mass/vol informati 2017 7:30 ume] in on in PM Serum source data Glucose 74 - 106 mg/dL High No Jan 31 [Mass/vol informati 2016 7:30 ume] in on in PM Serum or source Plasma data Potassium 3.5 - 5.1 mmoL/L Normal No Jan 31 informati 2017 7:30 [Moles/vo on in PM lume] in source Serum or data Plasma Sodium 136 - 145 mmoL/L Normal No Jan 31 [Moles/vo informati 2017 7:30 lume] in on in PM Serum or source Plasma data Aspartate 15 - 37 U/L Normal No Jan 31 informati 2016 7:30 aminotran on in PM sferase source [...] Observa Value Referen Units Interpr Notes Date ti ce etation Range Urea 7 - 18 [...] - 2.0 % Normal No Oct 15 / informati 2017 6:18 leukocyte on in AM [...] K/mm3 Normal No Oct 15 casie informati 2017 6:18 [...] Normal No Oct 15 te mean informati 2017 6:18 corpuscul on in AM [...] 1.0 K/mm3 Normal No Oct 15 informati 2016 6:18 [#/volume on in AM ] in source Blood by data Automated count Monocytes 1.7 - 9.3 % Normal No Oct 15 /100 informati [...] No Oct 15 s 10.8 informati informati 2017 6:18 [#/volume on in on in AM ] in source source Blood data data Cobalamin (Vitamin B12) [Mass/volume] in Serum Observa Value Referen Units Interpr Notes Date tion ce etation Range Cobalamin 211 - 946 pg/mL No Performed Oct 14 (Vitamin informati at: CB 2016 1:40 B12) on in - [facility] PM [Mass/vol source ume] in data [address] [place] [address] Serum [address] [place], [place] [id number] Melon Packer: Klaus Elaine PhD, Phone: [phone] 8:ANGELES MIN B12 previousl y reported as: 384 25-Hydroxyvitamin D [Mass/volume] in Serum or Plasma Observa Value Referen Units Interpr Notes Date tion ce etation Range 25-Hydrox 30.0 - ng/mL No Vitamin D Oct 14 yvitamin 100.0 informati 2016 1:40 D on in deficienc PM [Mass/vol source y has ume] in data been Serum or defined Plasma by the [place] [facility] e and an Endocrine Society practice guideline as alevel of serum 25-OH vitamin D less than 20 ng/mL (1,2).The Endocrine Society went on to further define vitamin Dinsuffic iency as a level between 21 and 29 ng/mL (2).1. IOM (Institut e of Medicine) . 2010. Dietary reference intakes for calcium and D. [place]: [employer].2. Shekhar MF, Morgan NC, Jonah Quarles BRANCH, et al.Evalua tion, treatment , and preventio n of vitamin Ddeficien cy: an Endocrine Society clinical practiceg uideline. JCEM. 2010; 96(7):191 1-30.Perf ormed at: CB - [facility] [address] [id number] Melon Packer: Klaus Elaine PhD, Phone: [phone] 1927:VIT D 25-OH TOT previousl y reported [...] Oct 14 yvitamin informati informati informati informati 2017 1:40 D on in on in on [...] 0 - 0.2 K/MM3 Normal No Oct 142016 1:40 [#/volume on in PM ] in [...] g/dL Normal No Oct 14 n 18.0 2016 1:40 [Mass/vol on in PM ume] in source Blood data Lymphocyt 0.7 - 4.5 K/mm3 Low No Oct 14 es ati 2016 1:40 [#/volume on in PM ] in source Unspecifi data ed specimen by Automated count Lymphocyt 10 - 50 % Low No Oct 14 es ati 2016 1:40 [#/volume on in PM [...] 0.1 - 1.0 K/mm3 Normal No Oct 142016 1:40 [#/volume on in PM ] in [...] - 424 K/mm3 Normal No Oct 14 informati 2016 1:40 [#/volume on in PM ] in source Blood data Erythrocy 4.6 - 6.2 M/mm3 Normal No Oct 14 casie informati 2016 1:40 [#/volume on in PM ] in source Amniotic data fluid Erythrocy 11.5 - % Normal Oct 14 te 17.5 informati 2016 1:40 distribut on in PM ion width source [Entitic data volume] by Automated count Leukocyte 4.8 - K/MM3 High No Oct 14 s 10.8 ati 2016 1:40 [#/volume on in PM ] in source Blood data Differential panel, method unspecified - Observa Value Referen Units Interpr Notes Date tion ce etation Range Neutrophi 0 - 8 % Normal Oct 14 ls.band 2016 1:40 form/100 on [...] 2 - 9 % Normal No Oct 14 informati 2016 [...] 76 % High No Oct 14 ls informati 2016 1:40 [#/volume on in PM ] in source Blood by data Automated count Cells No #CELLS No No Oct 14 Counted informati informati informati 2017 1:40 Total [#] on in on in [...] No Oct 14 gravity 1.030 informati informati 2016 1:35 of Urine on in on in [...]
--- OUTSIDE RECORDS SUMMARY | 2017-03-04 18:24 | External Medical Summary Rpt ---
Author Author [facility] [employer], DARVININA Production Organization [employer] Address Unknown Phone Unavailable Results Basic metabolic panel in Blood Observa Value Referen Units Interpr Notes Date tion ce etation Range SAMPLES DRAWN LATE DUE TO AEROTRIANGULATION SPECIALIST BREAK DOWNS Urea 7 - 18 mg/dL [...] etation Range SAMPLES DRAWN LATE DUE TO AEROTRIANGULATION SPECIALIST BREAK DOWNS Basophils 0 - 0.2 K/MM3 [...] [facility] PM [Mass/vol source ume] in data [place] [address] Serum 0 [place], [place] [id number] [employer] Director: Klaus Elaine PhD, Phone: [phone] 8:ANGELES MIN B12 previousl y reported as: 384 25-Hydroxyvitamin D [Mass/volume] in Serum or Plasma Observa Value Referen Units Interpr Notes Date tion ce etation Range 25-Hydrox 30.0 - ng/mL No Vitamin D Oct 14 yvitamin 100.0 informati 2016 1:40 D on in deficienc PM [Mass/vol source y has ume] in data been Serum or defined Plasma by the [place] [facility] e and an Endocrine Society practice guideline as alevel of serum 25-OH vitamin D less than 20 ng/mL (1,2).The Endocrine Society went on to further define vitamin Dinsuffic iency as a level between 21 and 29 ng/mL (2).1. IOM (Institut e of Medicine) . 2010. Dietary reference intakes for calcium and D. [place]: [employer].2. Shekhar MF, [place], Jonah Quarles BRANCH, et al.Evalua tion, treatment , and preventio n of vitamin Ddeficien cy: an Endocrine Society clinical practiceg uideline. JCEM. 2010; 96(7):191 1-30.Perf ormed at: CB - [facility] [address] [id number] [employer] Director: Klaus Elaine PhD, Phone: [phone] 1927:VIT D 25-OH TOT previousl y reported [...]
[2017-03-04 20:17] VITALS: BP 135/77
--- NOTE | 2017-03-04 20:44 | RADIOLOGY REPORT PS360 ---
CT CERVICAL SPINE W/O CONT INDICATION: Neck pain following injury FALL ORDERING PHYSICIAN: Yenny Valentin MD PATIENT AGE: 81 years COMPARISON: None TECHNIQUE: Axial images are obtained without contrast. Sagittal and coronal reformatted images are reviewed as well. FINDINGS: Normal alignment. No obvious fracture or dislocation. There is multilevel cervical spondylosis. C2-C3: Moderate facet hypertrophic change. C3-C4: Degenerative disc disease. Facet and uncovertebral hypertrophy with bilateral foraminal narrowing. C4-C5: Degenerative disc disease with facet and uncovertebral hypertrophy with severe left-sided foraminal narrowing. C5-C6: 2 to 3 mm anterolisthesis of C5 with degenerative disc disease and facet arthritic change with right-sided foraminal narrowing. C6-C7: Severe degenerative disc disease with uncovertebral hypertrophy and moderate bilateral foraminal narrowing. The tip of the spinous process of C7 is not included on the images. IMPRESSION: 1. No acute fracture. 2. Severe cervical spondylosis as detailed above with multilevel degenerative disc disease and facet arthritic change
--- NOTE | 2017-03-04 20:48 | RADIOLOGY REPORT PS360 ---
FOREARM-RT HISTORY: Posttraumatic pain fell ORDERING PHYSICIAN: Yenny Valentin MD PATIENT AGE: 81 years COMPARISON: None FINDINGS: No obvious fracture, dislocation, lytic change or blastic change. Normal mineralization. Unremarkable soft tissues IMPRESSION: Negative forearm
--- NOTE | 2017-03-04 20:51 | RADIOLOGY REPORT PS360 ---
PELVIS AP ONLY HISTORY: Fall with injury and pain fell ORDERING PHYSICIAN: Yenny Valentin MD PATIENT AGE: 81 years COMPARISON: None FINDINGS: No acute fracture or dislocation. Minimal osteoarthritic changes of the hips. Generalized vascular calcification. There is a 1 cm lucency of the proximal shaft of the femur on the right. This is of questioned clinical significance. Dedicated femur films may be of further value. IMPRESSION: 1. No acute fracture. 2. Nonspecific lucency of the proximal right femur which may be better evaluated with femur films
== END 2017-03-04 20:18 | disposition still patient (30) ==
LOC: ER 18:04
PROC: 0HQDXZZ Repair Right Lower Arm Skin, External Approach (ICD-10-PCS; principal; 2017-03-04)
DX: S51.811A Laceration without foreign body of right forearm, initial encounter (principal); S50.11XA Contusion of right forearm, initial encounter; W19.XXXA Unspecified fall, initial encounter; Z23 Encounter for immunization; Z88.0 Allergy status to penicillin; Z88.2 Allergy status to sulfonamides; K21.9 Gastro-esophageal reflux disease without esophagitis; G20 Parkinson's disease; F02.80 Dementia in other diseases classified elsewhere, unspecified severity, without behavioral disturbance, psychotic disturbance, mood disturbance, and anxiety
CPT/HCPCS: G0168